=== PATIENT | female | born 1980 | race Caucasian/White ===

== ENCOUNTER 2020-08-05 19:44 | Emergency (ER) | payer OTHER, SELFPAY ==
[2020-08-05 19:50] VITALS: BP 119/59; PULSE 64; RESP 18; TEMP 37.6; O2SAT 98; BMI 30.1
[2020-08-05 20:00] VITALS: RESP 18
[2020-08-05 20:27] VITALS: BP 106/72; PULSE 70; RESP 18; TEMP 36.8; O2SAT 99
--- NOTE | 2020-08-05 21:51 | ED.SKABFB ---
HPI - Skin/Abscess/Foreign Bdy General Chief complaint: Skin/Abscess/Foreign Body Stated complaint: Abscess Time Seen by Provider: 08/05/20 21:51 Source: patient and 911 telecommunicator Mode of arrival: ambulatory History of Present Illness HPI narrative: 39-year-old female with history of fibromyalgia, arthritis who recently had a tattoo placed and now presents with formation of a ?pimple? at this superior aspect of the tattoo approximately 4 days ago. Her boyfriend attempted to pop the pimple with limited expression of pus. Patient reports subjective fevers but denies chills. Patient denies ever use of IVDA. Related Data Previous Rx's Medication Instructions Recorded sulfamethoxazole-trimethoprim 1 tab PO Q12H 5 Days #10 tab 08/05/20 [Bactrim DS] Allergies Allergy/AdvReac Type Severity Reaction Status Date / Time levofloxacin [From Levaquin] Allergy Rash Verified 08/05/20 19:50 Penicillins Allergy Rash Verified 08/05/20 19:50 adhesive tape AdvReac Rash Verified 08/05/20 19:50 Review of Systems Review of Systems: Pertinent positives and negatives as stated in HPI 10 point review of systems is otherwise negative. PMFSH Past Medical History Source: nursing notes reviewed Medical History Arthritis Asthma Fibromyalgia Hypotension Interstitial cystitis Sleep apnea Social History Social History Smoking Status: Unknown if ever smoked Use of substances other than those prescribed or required for medical reasons: No Advance Directives: No Advance Directives Information Provided: Yes Physical Exam Vital Signs: Vital Signs: Last Vital Signs Temp 98.2 F 08/05/20 20:27 Pulse 70 08/05/20 20:27 Resp 18 08/05/20 20:27 BP 106/72 08/05/20 20:27 Pulse Ox 99 08/05/20 20:27 Body Mass Index 30.1 VITAL SIGNS: Reviewed. GENERAL: Well developed, well nourished, in no acute distress. HEAD: Normocephalic/atraumatic, EYES: PERRLA, EOMI NOSE: Nares patent bilateral OROPHARYNX: no oral lesions noted, posterior pharynx clear NECK: Supple, no adenopathy LUNGS: Normal breath sounds. SpO2<99> CARDIOVASCULAR: Regular rate and rhythm without noted murmurs ABDOMEN: Soft, non-tender, non-distended with bowel sounds. BACK: There is a noted small pustule at the superior aspect of lower back tattoo but primarily induration approximately 4 cm in diameter without fluctuance. NEUROLOGIC: Alert and oriented x 4. Course Course Course Narrative: 39-year-old female with history and clinical presentation consistent with post tattoo infection although the initial site does not appear to be associated with any of the tattoo lines. Low suspicion for spinal involvement as patient has no prior history of IVDA. She will receive initial antibiotics here in the emergency department and be discharged with a script as well as instructions to use warm moist compresses and [id number] analgesics for pain control. She was also instructed to follow up with the primary care provider. Discharge Plan Discharge Clinical Impression: Induration of skin Patient Disposition: Home, Self-Care Instructions: Abscess (ED) Additional Instructions: 1. Tylenol 1000 mg, por v?a oral, cada 6 horas seg?n sea necesario para controlar el dolor. No exceda los 4000 mg en 24 horas. 2. Ibuprofeno 400 mg, por v?a oral con leche o alimentos, cada 6 horas seg?n sea necesario para controlar el dolor. 3. Aplique compresas h?medas tibias en el sitio de 3 a 4 veces al d?a brandi 5 a 10 minutos. 4. Nicole un seguimiento con peters proveedor de atenci?n primaria en los pr?ximos 2-3 d?as para shira reevaluaci?n. No dude en volver al servicio de urgencias si experimenta un empeoramiento nick de boaz s?ntomas. Prescriptions: New sulfamethoxazole-trimethoprim [Bactrim DS] 800-160 mg tablet 1 tab PO Q12H 5 Days Qty: 10 RF: 0 Referrals: Physician,Unknown [Primary Care Provider] - 2 days Print Language: Upper Sorbian
== END 2020-08-05 22:10 | disposition home or self-care (01) ==
PROVIDERS: Emergency Provider Student in an Organized Health Care Education/Training Program
DX: R23.4 Changes in skin texture (principal)
CPT/HCPCS: 99283; 99284

== ENCOUNTER 2020-08-14 06:53 | Emergency (ER) | payer OTHER, SELFPAY ==
--- NOTE | ~2020-08-14 | XR_ITS ---
EXAMINATION: XR LUMBOSACRAL SPINE CLINICAL INFORMATION: Rule out bone infection. COMPARISON: None TECHNIQUE: Three views of the lumbosacral spine. FINDINGS: The vertebral bodies and posterior elements are normal. The disc spaces are preserved and the vertebral alignment is normal. The paraspinal soft tissues are normal. Surgical clips overlie the epigastric region. XR/XR lumbar spine 2-3V IMPRESSION: Unremarkable lumbar spine.
[2020-08-14 07:05] VITALS: BP 109/56; PULSE 69; RESP 18; TEMP 36.6; O2SAT 99; BMI 31.6
[2020-08-14 07:57] VITALS: BP 95/54; PULSE 64; RESP 18; TEMP 37.1; O2SAT 96
--- NOTE | 2020-08-14 07:57 | ED.GENADULT ---
HPI - General Adult General Chief complaint: Wound/Laceration Stated complaint: WOUND CHECK Time Seen by Provider: 08/14/20 07:54 Source: patient and home support worker Mode of arrival: ambulatory Limitations: no limitations History of Present Illness HPI narrative: 39-year-old female presented for 2nd visit to the emergency department for same complaint of cyst on the lower back. This is a 39-year-old female who recently had had to placed on the lower lumbar area in the midline, patient started with a pimple that was attempted to be popped by her boyfriend with limited expression of pus, patient was seen in the emergency department 9 days ago there was no discrete abscesses then patient was sent home on Bactrim and patient finished a course of Bactrim 4 days ago, patient was complaining of drainage from the area that stopped now, patient declined any fever, but reported chills sometimes. Patient at low risk for deep infection, no history of IV drug abuse. Patient declined any urinary symptoms including urinary incontinence, no motor deficit. Related Data Previous Rx's Medication Instructions Recorded sulfamethoxazole-trimethoprim 1 tab PO Q12H 5 Days #10 tab 08/05/20 [Bactrim DS] doxycycline hyclate 100 mg PO BID #14 cap 08/14/20 Allergies Allergy/AdvReac Type Severity Reaction Status Date / Time levofloxacin [From Levaquin] Allergy Rash Verified 08/05/20 19:50 Penicillins Allergy Rash Verified 08/05/20 19:50 adhesive tape AdvReac Rash Verified 08/05/20 19:50 Review of Systems Review of Systems: All other systems are reviewed and are negative Constitutional: Reports as per HPI and Reports no additional constitutional complaints Eyes: Reports as per HPI and Reports no additional eye complaints Reports system reviewed and no additional complaints, except as documented Cardiovascular: Reports as per HPI and Reports no additional cardiovascular complaints Respiratory: Reports as per HPI and Reports no additional respiratory complaints Gastrointestinal: Reports as per HPI and Reports no additional gastrointestinal complaints Genitourinary: Reports no additional female genitourinary complaints Musculoskeletal: Reports no additional musculoskeletal complaints Skin/Breast: Reports system reviewed and no additional complaints, except as docu Psychiatric: Reports no additional psychiatric complaints Endocrine: Reports no additional endocrine complaints Hematologic/Lymphatic: Reports no additional hematologic/lymphatic complaints Allergic/Immunologic: Reports no additional allergic/immunologic complaints Reports system reviewed and no additional complaints, except as documented and Reports Abnormal speech present PMFSH Past Medical History Medical History Arthritis Asthma Fibromyalgia Hypotension Interstitial cystitis Sleep apnea Social History Social History Alcohol intake: current Alcohol intake frequency: holidays/special occasions only Smoking Status: Current every day smoker Use of substances other than those prescribed or required for medical reasons: No Advance Directives: No Advance Directives Information Provided: No Physical Exam Vital Signs: Vital Signs: Last Vital Signs Temp 98.8 F 08/14/20 07:57 Pulse 64 08/14/20 07:57 Resp 18 08/14/20 07:57 BP 95/54 L 08/14/20 07:57 Pulse Ox 96 08/14/20 07:57 Body Mass Index 31.6 Vital signs have been reviewed as appeared to be correct. Blood pressure normal. Heart rate normal. Respiration rate normal. Temperature normal. Oxygen saturation normal. Appearance: Alert. Oriented X3. No acute distress. Head: Normal external exam. Normocephalic. Atraumatic. No [place]ada signs noted. No raccoon eyes noted Eyes: PERRLA. EOMI. Conjunctiva and sclera normal. Eyelids normal. ENT: TM's Normal. Pharynx normal. Uvula midline. Moist mucous membranes. No trismus noted. No drooling noted. No muffled voice noted. Neck: Normal inspection. Neck supple. FROM. No adenopathy. Thyroid Normal. No meningeal signs. No neck mass noted. CVS: Normal heart rate and rhythm. Heart sound normal. No murmurs noted. Pulses normal throughout. Respiratory: No respiratory distress. Painless inspiration. Breath sounds normal. No wheezes/rales/rhonchi noted. Chest nontender. No accessory muscle usage noted or decreased air movement noted. Abdomen: Soft and nontender. Bowel sounds normal in all 4 quadrants. No distention noted. No organomegaly noted. No visible injury noted. Back: No CVA tenderness. Butter fly tattoo at lumbar region, area of redness, tenderness, but no fluctuation or pus drainage, 2 x 2 cm area of granulation tissue at the center surrounded by erythematous skin. Skin: Skin warm and dry. Normal skin color. Normal skin turgor. No rashes/lesions/lacerations noted. Extremities: No lower extremity edema. Extremities exhibit normal range of motion. Extremities nontender. Neuro: Oriented X 3. No motor deficit. No sensory deficit. Reflexes normal. Course Course Course Narrative: Assessment and plan. 39-year-old female history of recent tattoo placement to the lumbar region, presented 10 days ago with infection to the region with no discrete abscess, patient finished a week course of Bactrim, with partial improvement, there is no drainage or fluid collection at this point. Will start the patient on doxycycline, and will send the patient for outpatient surgery follow-up. Medical Decision Making Imaging Data Lumbar spine x-ray: Radiologist's impression: No evidence of lumbar spine osteomyelitis. Discharge Plan Discharge Clinical Impression: Cellulitis Qualifiers: Site of cellulitis of trunk: back Patient Disposition: Home, Self-Care Instructions: Cellulitis (ED) Prescriptions: New doxycycline hyclate 100 mg capsule 100 mg PO BID Qty: 14 RF: 0 No Action sulfamethoxazole-trimethoprim [Bactrim DS] 800-160 mg tablet 1 tab PO Q12H 5 Days Qty: 10 RF: 0 Referrals: Charles Gaston MD [Physician] - 2 days
--- NOTE | 2020-08-14 08:24 | PC.NURSE ---
Pt alert and oriented, skin warm and dry. Reports lump to lower mid back x10 days. No drainage noted on exam. Pt waiting on X-RAY.
--- NOTE | 2020-08-14 08:42 | PC.NURSE ---
rtn to room from xray
== END 2020-08-14 09:34 | disposition home or self-care (01) ==
PROVIDERS: Emergency Provider Emergency Medicine; PCP Internal Medicine
DX: L03.312 Cellulitis of back [any part except buttock and flank] (principal); F11.10 Opioid abuse, uncomplicated
CPT/HCPCS: 72100; 99283; 99284

== ENCOUNTER → 2020-08-28 15:39 | Outpatient (BNVA) | payer OTHER, SELFPAY | PROVIDERS: PCP Internal Medicine; Visit Provider Surgery | DX: Z87.2 Personal history of diseases of the skin and subcutaneous tissue (principal) | CPT/HCPCS: 99202 ==

== ENCOUNTER 2023-04-27 15:22 | Emergency (ER) | payer OTHER, SELFPAY ==
--- NOTE | ~2023-04-27 | XR_ITS ---
EXAMINATION: XR CHEST CLINICAL INFORMATION: Cough. COMPARISON: None available. TECHNIQUE: Frontal view of the chest was obtained. FINDINGS: No significant abnormality is noted involving the heart, lungs, mediastinum, bony thorax or soft tissues. XR/XR chest 1V IMPRESSION: Unremarkable examination.
[2023-04-27 19:06] VITALS: BP 130/65; PULSE 61; RESP 20; TEMP 36.6; O2SAT 100; BMI 20.1
[2023-04-27 19:13] LABS: MANUAL DIFF FLAG NO
[2023-04-27 19:15] LABS: Basophils Absolute Auto 0.1 X10*3/uL (0.0-0.2); Basophils Percent Auto 0.4 % (0-2); Eosinophils Percent Auto 0.2 % (0-4); Hematocrit 40.4 % (37.0-47.0); Hemoglobin 13.8 g/dl (12.0-16.0); Imm Gran Abs Auto 0.06 X10*3/uL (0.00-0.03); Imm Gran Pct Auto 0.5 % (0.0-0.4); Lymphocytes Absolute Auto 0.9 X10*3/uL (1.2-4.9); Lymphocytes Percent Auto 7.3 % (20-40); Mean Corpuscular HGB Conc 34.2 g/dl (31.0-35.0); Mean Corpuscular Hemoglobin 30.1 pg (27.0-33.0); Mean Corpuscular Volume 88.2 fL (80.0-98.0); Mean Platelet Volume 11.3 fL (9.4-12.3); Monocytes Absolute Auto 0.5 X10*3/uL (0.1-1.2); Monocytes Percent Auto 3.9 % (2-11); Neutrophils Absolute Auto 11.1 x10*3/uL (2.0-8.3); Neutrophils Percent Auto 87.7 % (45-73); Platelet Count 313 X10*3/uL (160-400); Red Blood Count 4.58 X10*6/uL (4.20-5.50); Red Cell Distribution Width 13.3 % (11.0-16.0); White Blood Count 12.7 X10*3/uL (4.8-10.8)
--- NOTE | 2023-04-27 19:17 | ED_ITS ---
HPI - General Adult General Chief complaint: Upper Respiratory Symptoms Stated complaint: vomiting,fever Time Seen by Provider: 04/27/23 20:56 Source: patient and digital print operator Mode of arrival: ambulatory Limitations: language barrier History of Present Illness HPI narrative: Patient is a 42 year old assigned female at with a history of fibromyalgia presenting to the emergency department today with nausea, vomiting, cough, congestion, fever, and chills. Patient states that over the last day she has had cough, congestion, nausea, vomiting, fever, and chills. Patient denies any dizziness, lightheadedness, abdominal pain, blurry vision, double vision, loss of vision, chest pain, difficulty breathing, shortness of breath, back pain, night sweats, pain with urination, increased urinary frequency, increased urinary urgency, blood in her urine or stool, syncope or a near syncopal episode, recent trauma or falls, bowel incontinence, bladder incontinence, bowel retention, bladder retention, or any other complaints at this time. Onset (ago): day(s) Severity: mild Severity scale (1-10): 3 Relieving factors: none Exacerbating factors: none Associated symptoms: cough, fever/chills and nausea/vomiting Treatments prior to arrival: none Related Data Previous Rx's Medication Instructions Recorded sulfamethoxazole 800 1 tab PO Q12H 5 days #10 tabs 08/05/20 mg-trimethoprim 160 mg tablet (Bactrim DS) doxycycline hyclate 100 mg capsule 100 mg PO BID #14 caps 08/14/20 hydrocodone 5 mg-acetaminophen 325 1 tab PO BID PRN pain #5 tabs 04/27/23 mg tablet ondansetron 4 mg disintegrating 4 mg PO Q8H 3 days #9 tabs 04/27/23 tablet Allergies Allergy/AdvReac Type Severity Reaction Status Date / Time levofloxacin [From Levaquin] Allergy Rash Verified 04/27/23 19:11 Penicillins Allergy Rash Verified 04/27/23 19:11 adhesive tape AdvReac Rash Verified 04/27/23 19:11 [facility] Past Medical History Attestation statement: The following information was validated with the patient. Source: old records reviewed and nursing notes reviewed Medical History Infected cyst of skin Arthritis Asthma Sleep apnea Interstitial cystitis Hypotension Fibromyalgia Social History Social History Alcohol intake: current Alcohol intake frequency: holidays/special occasions only Advance Directives: No Advance Directives Information Provided: No Physical Exam ED Vital Signs: Vital Signs - 24 hr 04/27/23 19:06 04/27/23 20:24 04/27/23 21:24 Temperature 98 F 97.6 F Pulse Rate 61 65 Respiratory Rate 20 20 Blood Pressure 130/65 112/69 Pulse Oximetry 100 98 Oxygen Delivery Method Room Air Room Air Room Air BMI result Body Mass Index 20.1 Const General: cooperative, no acute distress, alert and awake Nutritional Appearance: well nourished Orientation/consciousness: patient oriented x3 Limitations: no limitations HENMT Head: Yes normal to inspection and Yes atraumatic Ears: hearing grossly normal bilaterally and external ears normal General nose exam: Normal external nose present, no nasal discharge noted and no epistaxis Face and sinus: Yes normal facial exam, No abrasion and No laceration Mouth: Normal oral and palatal mucosa present, no drooling and no muffled voice Eyes General: appearance normal, both eyes and all related structures Periorbital: periorbital findings normal Eyelids: Yes eyelids normal Conjunctivae: conjunctivae normal Pupils: Equal, round and reactive pupils present EOM: EOMs intact bilaterally Neck Neck: Yes normal visual inspection, Yes full ROM and Yes no lymphadenopathy Chest Chest palpation & inspection: normal inspection of the chest Resp Effort & Inspection: normal respiratory effort and able to speak in complete sentences GI Inspection: Yes normal to inspection Neuro General: patient oriented x3 and moves all extremities Cranial nerves: Yes Equal, round and reactive pupils present Cognition (Neuro): normal cognition Motor exam (neuro): 5/5 motor strength present throughout Sensory Exam: Normal double simultaneous stimulation for sensation Coordination: [id number] test normal Extrem General: Yes normal to inspection, Yes full ROM and Yes capillary refill normal Psych Appearance: grossly normal Mental Status: mental status grossly normal Affect: normal affect Attitude: cooperative Thought process: Normal thought process present Thought content: Normal thought content present Insight: Good insight present (Psych) Course Course Course Narrative: This is a rapid medical exam: Additional HPI, ROS, PE not included below will be deferred to primary provider. Patient is a 42-year-old female presenting to the emergency department with complaint of nausea and vomiting since this afternoon, also complains of epigastric abdominal pain. Significant other reports he is sick with similar symptoms. Denies fevers. Plan: Labs, viral swab, UA Medications Administered Discontinued Medications Generic Name Dose Route Start Last Admin Trade Name Richard PRN Reason Stop Dose Admin Sodium Chloride 1,000 mls @ 999 mls/hr 04/27/23 21:15 04/27/23 22:27 Ns IV 04/27/23 22:15 Infused .Q1H1M CRIS Infusion Morphine Sulfate 4 mg 04/27/23 22:18 04/27/23 22:26 Morphine Sulfate 4 Mg/Ml Cartridge IVPUSH 04/27/23 22:19 4 mg ONCE ONE Administration Protocol Naloxone HCl 8 mg 04/27/23 23:40 04/27/23 23:48 Naloxone Hcl Nasal Take Home 4 Mg [place] NOSTRILALT 04/27/23 23:41 8 mg ONCE ONE Administration Ondansetron HCl 4 mg 04/27/23 21:05 04/27/23 21:20 Ondansetron Hcl 4 Mg/2 Ml Vial IVPUSH 04/27/23 21:06 4 mg ONCE ONE Administration Medical Decision Making Medical Decision Making [facility] Narrative: Patient is a 42 year old assigned female at with a history of fibromyalgia presenting to the emergency department today with a cough, congestion, nausea, vomiting, fever, and chills. Patient's physical exam was unremarkable. Patient's blood work was unremarkable. Patient's influenza, RSV, and influenza tests negative. Patient's chest x-ray showed no acute process. I explained my physical exam findings as well as all test results to the patient. I answered all questions asked by the patient. I stressed the importance of the patient taking her medication as prescribed. I stressed the importance of the patient following up with her primary care provider. I stressed the importance of the patient returning to the emergency department immediately if her symptoms were to worsen or if she were to develop any dizziness, shortness of breath, difficulty breathing, chest pain, blurry vision, loss of vision, nausea, vomiting, abdominal pain, fever, chills, back pain, or any other complaints. Patient verbalized agreement and understanding with this treatment plan and discharge. Differential Diagnosis Differential Diagnoses: The differential diagnosis associated with the presentation includes Viral illness Gastroenteritis Enteritis Influenza COVID-19 RSV Admission/Observation Consideration of admission/observation: Escalation of care including admission/observation considered Patient would have been admitted to the hospital had her work up had any findings where hospital admission was appropriate and her clinical presentation warranted hospital admission. Lab Data [facility] Lab Attestation statement: I reviewed the patient's lab results. My interpretation of these results are in the [facility] Rationale portion of this note. 04/27/23 19:08 04/27/23 19:08 Labs: Lab Results 04/27/23 04/27/23 Range/Units 19:08 19:09 WBC 12.7 H (4.8-10.8) X10*3/uL RBC 4.58 (4.20-5.50) X10*6/uL Hgb 13.8 (12.0-16.0) g/dl Hct 40.4 (37.0-47.0) % MCV 88.2 (80.0-98.0) fL MCH 30.1 (27.0-33.0) pg MCHC 34.2 (31.0-35.0) g/dl RDW 13.3 (11.0-16.0) % Plt Count 313 (160-400) X10*3/uL MPV 11.3 (9.4-12.3) fL Immature Gran % (Auto) 0.5 H (0.0-0.4) % Neut % (Auto) 87.7 H (45-73) % Lymph % (Auto) 7.3 L (20-40) % [place] % (Auto) 3.9 (2-11) % Eos % (Auto) 0.2 (0-4) % Baso % (Auto) 0.4 (0-2) % Lymph # (Auto) 0.9 L (1.2-4.9) X10*3/uL [place] # (Auto) 0.5 (0.1-1.2) X10*3/uL Eos # (Auto) 0.0 (0.0-0.4) X10*3/uL Baso # (Auto) 0.1 (0.0-0.2) X10*3/uL Abs Immat Gran (auto) 0.06 H (0.00-0.03) X10*3/uL Absolute Neuts (auto) 11.1 H (2.0-8.3) x10*3/uL Absolute Nucleated RBC 0.000 (0.0-0.012) X10*3/uL Nucleated RBC % (auto) 0.0 (0.0-0.2) /100WBC Sodium 142 (135-145) mmol/L Potassium 3.8 (3.3-5.1) mmol/L Chloride 105 (96-108) mmol/L Carbon Dioxide 23 (22-29) mmol/L Anion Gap 18 (12-20) BUN 11 (9-16) mg/dL Creatinine 0.75 (0.5-1.4) mg/dL Estim Creat Clear Calc 75.4 Estimated GFR > 60 Random Glucose 122 H (60-115) mg/dL Calcium 10.4 H (8.4-10.2) mg/dL Total Bilirubin 0.5 (0.0-1.0) mg/dL AST 26 (5-31) U/L ALT 14 (0-31) U/L Alkaline Phosphatase 66 (39-117) U/L Total Protein 8.4 H (6.5-8.0) g/dL Albumin 4.5 (3.5-5.0) g/dL Beta HCG, Quant < 2 mIU/mL Influenza Type A (PCR) NEGATIVE (Negative) Influenza Type B (PCR) NEGATIVE (Negative) RSV RNA Qual (PCR) NEGATIVE (Negative) SARS-CoV-2 RNA (RT-PCR) NEGATIVE (Negative) S. pyogenes GrpA ROMERO Negative (Negative) Independent Interpretation I performed an independent interpretation of an: Plain X-Ray Interpretation: My interpretation is in agreement with the radiologist's impression of this imaging study. - EXAMINATION: XR CHEST CLINICAL INFORMATION: Cough. COMPARISON: None available. TECHNIQUE: Frontal view of the chest was obtained. FINDINGS: No significant abnormality is noted involving the heart, lungs, mediastinum, bony thorax or soft tissues. XR/XR chest 1V IMPRESSION: Unremarkable examination. Dictated By: Rose Brown Signed By: Electronically signed by Rose Brown 04/27/232149 Radiology Impression Discussion of test interpretation with radiology: I have reviewed the radiologist's reading. Tests considered The following testing was considered but not selected: CT of the abdomen/pelvis was considered however, the patient's clinical presentation did not warrant imaging at this time. Prescription Management I considered prescription management with: Pain Medication (patient prescribed pain medication for pain secondary to vomiting) and Other (patient prescribed anti-emetic for nausea/vomiting) Discharge Plan Discharge Clinical Impression: Viral illness, Nausea & vomiting Patient Disposition: Home, Self-Care Instructions: Acute Nausea and Vomiting (ED), Viral Syndrome (ED) Additional Instructions: Follow up with your primary care provider. Return to the emergency department immediately if your symptoms worsen or if you develop any dizziness, shortness of breath, difficulty breathing, chest pain, blurry vision, loss of vision, nausea, vomiting, abdominal pain, fever, chills, back pain, or any other complaints. Nicole un seguimiento con peters proveedor de atenci?n primaria. Regrese al departamento de emergencias inmediatamente si boaz s?ntomas empeoran o si presenta mareos, dificultad para respirar, dificultad para respirar, dolor en el pecho, visi?n borrosa, p?rdida de la visi?n, n?useas, v?mitos, dolor abdominal, fiebre, escalofr?os, dolor de espalda o cualquier otras quejas. Prescriptions: New ondansetron 4 mg tablet,disintegrating 4 mg PO Q8H 3 Days Qty: 9 0RF hydrocodone-acetaminophen 5-325 mg tablet 1 tab PO BID PRN (Reason: pain) Qty: 5 0RF Rx Instructions: Partial Fill upon patient request. No Action sulfamethoxazole-trimethoprim [Bactrim DS] 800-160 mg tablet 1 tab PO Q12H 5 Days Qty: 10 0RF doxycycline hyclate 100 mg capsule 100 mg PO BID Qty: 14 0RF Referrals: Mendez Roldan MD [Primary Care Provider] - Stand Alone Forms: Work/School Release Interventions: ED Discharge Assessment Last Done: 04/27/23 23:48 Discharge Date/Time: 04/27/23 23:50 Print Language: [place] Citizen
[2023-04-27 19:23] LABS: IDNOW Serial# 08D9AD1C; Strep A Nucleic Acid Negative (Negative)
[2023-04-27 19:37] LABS: Alanine Aminotransferase 14 U/L (0-31); Albumin Level 4.5 g/dL (3.5-5.0); Alkaline Phosphatase 66 U/L (39-117); Anion Gap 18 (12-20); Aspartate Amino Transferase 26 U/L (5-31); Bilirubin Total 0.5 mg/dL (0.0-1.0); Blood Urea Nitrogen 11 mg/dL (9-16); Calcium 10.4 mg/dL (8.4-10.2); Carbon Dioxide 23 mmol/L (22-29); Chloride 105 mmol/L (96-108); Creatinine Clr Calc Pharmacy 75.4; Estimated Glomerular Filt Rate > 60; Glucose Random 122 mg/dL (60-115); Potassium 3.8 mmol/L (3.3-5.1); Sodium 142 mmol/L (135-145); Total Protein 8.4 g/dL (6.5-8.0)
[2023-04-27 19:40] LABS: HCG Quantitative < 2 mIU/mL
[2023-04-27 19:53] LABS: Influenza A PCR NEGATIVE (Negative); Influenza B PCR NEGATIVE (Negative); Resp Syncy Virus RNA Qual PCR NEGATIVE (Negative); SARS COV2 PCR INHOUSE NEGATIVE (Negative)
[2023-04-27 20:24] VITALS: BP 112/69; PULSE 65; RESP 20; TEMP 36.4; O2SAT 98
[2023-04-27] MEDS: ondansetron HCL 4 MG/2 ML VIAL IVPUSH (21:20)
[2023-04-27] MEDS: 0.9 % Sodium Chloride 1,000 ML 999 ML IV (21:20)
[2023-04-27] MEDS: Morphine Sulfate 4 MG/ML CARTRIDGE IVPUSH (22:26)
[2023-04-27] MEDS: Naloxone HCl Nasal TAKE HOME 4 MG SPRAY 8 MG NOSTRILALT (23:48)
== END 2023-04-27 23:50 | disposition home or self-care (01) ==
PROVIDERS: Registered Nurse Emergency; Emergency Provider Emergency Medicine; PCP Internal Medicine
DX: B34.9 Viral infection, unspecified (principal); R11.2 Nausea with vomiting, unspecified; Z20.822 Contact with and (suspected) exposure to COVID-19; Z20.828 Contact with and (suspected) exposure to other viral communicable diseases
CPT/HCPCS: 0241U; 71045; 80053; 84702; 85025; 87651; 96361; 96374; 96375; 99284; J2270; J2405

== ENCOUNTER 2025-01-29 20:08 | Emergency (ER) | payer OTHER, SELFPAY ==
[2025-01-29 20:32] VITALS: BP 109/66; PULSE 64; RESP 14; TEMP 36.3; O2SAT 99; BMI 22.9
--- NOTE | 2025-01-29 20:33 | ED_ITS ---
HPI - General Adult General Chief complaint: Urogenital-Female Stated complaint: burning when urinating Time Seen by Provider: 01/29/25 22:53 Source: patient and stations superintendent (Tajik) Mode of arrival: ambulatory Limitations: language barrier (Tajik) History of Present Illness ED Provider: ANGIE JENKINS PA-C HPI narrative: 44 yo F with PMH significant for asthma and fibromyalgia presents to the ED with urinary hesitancy and dysuria x4 days. Describes this sensation as pain in my urethra . Denies hematuria, foul odor to urine, abd or flank pain, fever, chills. Admits she has not been drinking much water and may be dehydrated. Reports history of chronic cystitis, has not followed up with her urologist in approximately 2 years. Also reports chronic constipation. Her last bowel movement was yesterday and was firm. Able to pass flatus. No nausea or vomiting. Patient is sexually active. She denies any abnormal vaginal discharge, bleeding or odor. Denies concern for STDs. She is status post hysterectomy. Related Data Previous Rx's ?Medication ?Instructions ?Recorded sulfamethoxazole 800 1 tab PO Q12H 5 days #10 tab s 08/05/20 mg-trimethoprim 160 mg tablet (Bactrim DS) doxycycline hyclate 100 mg capsule 100 mg PO BID #14 c aps 08/14/20 hydrocodone 5 mg-acetaminophen 325 1 tab PO BID PRN pa in #5 tabs 04/27/23 mg tablet ondansetron 4 mg disintegrating 4 mg PO Q8H 3 days #9 tabs 04/27/23 tablet phenazopyridine 200 mg tablet 200 mg PO TID 6 doses #6 tabs 01/30/25 (Pyridium) Allergies Allergy/AdvReac Type Severity Reaction Status Date / Time levofloxacin (From Levaquin) Allergy Rash Verified 01/29/25 20:35 Penicillins Allergy Rash Verified 01/29/25 20:35 adhesive tape AdvReac Rash Verified 01/29/25 20:35 Review of Systems 2 Review of Systems: Yes all other systems are reviewed and are negative PMFSH Past Medical History Attestation statement: The following information was validated with the patient. Source: old records reviewed and nursing notes reviewed Medical History Infected cyst of skin Arthritis Asthma Sleep apnea Interstitial cystitis Hypotension Fibromyalgia Social History Social History Alcohol intake: current Alcohol intake frequency: does not drink Smoked in Last 30 Days: Yes Use of substances other than those prescribed or required for medical reasons: No Advance Directives: No Advance Directives Information Provided: Yes Do you have a plan to hurt others: No Plan Physical Exam ED Vital Signs: Vital Signs - 24 hr 01/29/25 20:32 01/30/25 00:00 01/30/25 01:15 Temperature 97.4 F 98.0 F 98.2 F Pulse Rate 64 58 58 Respiratory Rate 14 16 16 Blood Pressure 109/66 98/53 L 97/55 L Pulse Oximetry 99 99 99 Oxygen Delivery Method Room Air Room Air Room Air 01/30/25 01:33 Temperature 98.2 F Pulse Rate 58 Respiratory Rate 16 Blood Pressure 97/55 L Pulse Oximetry 99 Oxygen Delivery Method Room Air BMI result Body Mass Index 22.9 Vital signs stable General: Well appearing, in no acute distress. Skin: Warm, dry, intact. No rashes or lesions. Head: Normocephalic, atraumatic. EENT: Hearing is intact b/l. Conjunctiva clear. PERRLA. EOM intact. Moist mucous membranes.? Cardiac: Chest wall symmetric. RRR Lungs: Normal respiratory effort without accessory muscle use. CTA bilaterally Abdomen: Soft, non-tender, non-distended. No rebound tenderness or guarding. Positive BS x4. no cvat. Back: No midline spinous or paraspinal tenderness. No step off deformity. Ext: Upper and lower extremities atraumatic, without tenderness, deformity, swelling or erythema Neuro: AOx3. Normal speech. Ambulating with steady gait Course Course Course Narrative: Medical screening exam performed. Please refer to detailed history, exam, evaluation, and management by primary provider. Dysuria and frequency, history of cystitis in the past. Reevaluation(s) Reevaluation #1: CBC without leukocytosis or left shift. Normocytic anemia, H&H above transfusion threshold. Chemistry without acute electrolyte abnormality requiring intervention. No GIOVANNI. Urine is negative for infection. No blood. > patient receiving IV fluids. Advised to increase oral hydration. Will prescribe Pyridium for bladder spasms. Advised to follow up with her urologist. No antibiotics indicated at this time. Exam benign. I do not feel as though advanced imaging is warranted. Patient has remained stable throughout ED visit today. Discussed worrisome signs and symptoms and when to return to the ED. All questions answered at this time. Patient is agreeable with disposition and stable for discharge. Medications Administered Discontinued Medications Generic Name Dose Route Start Last Admin Trade Name Richard PRN Reason Stop Dose Admin Sodium Chloride 1,000 mls @ 999 mls/hr 01/30/25 00:30 01/30/25 01:33 Ns IV 01/30/25 01:30 Infused .Q1H1M CRIS Infusion Phenazopyridine HCl 200 mg 01/30/25 01:01 01/30/25 01:16 Phenazopyridine Hcl 200 Mg Tablet PO 01/30/25 01:02 200 mg ONCE ONE Administration Medical Decision Making Medical Decision Making [facility] Narrative: 44 yo F with PMH significant for asthma and fibromyalgia presents to the ED with urinary hesitancy and dysuria x4 days. Vital signs stable. Afebrile. Her exam is quite benign. Abdomen is soft, nondistended, nontender to palpation. There is no rebound or guarding. No CVAT bilaterally. Active bowel sounds throughout. Differential diagnosis includes bladder spasms, dysuria, cystitis, UTI, constipation, dehydration, GIOVANNI. Lower suspicion for STDs, pyelonephritis. Plan for labs, UA, IVF, re-eval. Differential Diagnosis Differential Diagnoses: The differential diagnosis associated with the presentation includes as above. Admission/Observation not indicated. Lab Data [facility] Lab Attestation statement: I reviewed the patient's lab results. as above. 01/29/25 20:54 01/29/25 20:54 Labs: Lab Results 01/29/25 01/30/25 Range/Units 20:54 00:16 WBC 9.4 (4.8-10.8) X10*3/uL RBC 3.79 L (4.20-5.50) X10*6/uL Hgb 11.3 L (12.0-16.0) g/dl Hct 34.3 L (37.0-47.0) % MCV 90.5 (80.0-98.0) fL MCH 29.8 (27.0-33.0) pg MCHC 32.9 (31.0-35.0) g/dl RDW 14.3 (11.0-16.0) % Plt Count 234 D (160-400) X10*3/uL MPV 11.2 (9.4-12.3) fL Immature Gran % (Auto) 0.3 (0.0-0.4) % Neut % (Auto) 60.2 (45-73) % Lymph % (Auto) 23.4 (20-40) % [place] % (Auto) 8.7 (2-11) % Eos % (Auto) 6.8 H (0-4) % Baso % (Auto) 0.6 (0-2) % Lymph # (Auto) 2.2 (1.2-4.9) X10*3/uL [place] # (Auto) 0.8 (0.1-1.2) X10*3/uL Eos # (Auto) 0.6 H (0.0-0.4) X10*3/uL Baso # (Auto) 0.1 (0.0-0.2) X10*3/uL Abs Immat Gran (auto) 0.03 (0.00-0.03) X10*3/uL Absolute Neuts (auto) 5.6 (2.0-8.3) x10*3/uL Absolute Nucleated RBC 0.000 (0.0-0.012) X10*3/uL Nucleated RBC % (auto) 0.0 (0.0-0.2) /100WBC Sodium 141 (135-145) mmol/L Potassium 3.7 (3.3-5.1) mmol/L Chloride 104 (96-108) mmol/L Carbon Dioxide 30 H (22-29) mmol/L Anion Gap 11 L (12-20) BUN 9 (9-16) mg/dL Creatinine 0.67 (0.5-1.4) mg/dL Estim Creat Clear Calc 83.0 Estimated GFR > 60 Random Glucose 74 (60-115) mg/dL Calcium 9.1 D (8.4-10.2) mg/dL Urine Color Yellow Urine Appearance Clear Urine pH 5.5 (5.0-9.0) Ur Specific [place] 1.020 (1.005-1.025) Urine Protein 30 (1+) H (Neg-Trace) mg/dL Urine Glucose (UA) Negative (Negative) mg/dL Urine Ketones Trace (Negative) mg/dL Urine Blood Negative (Negative) Urine Nitrite Negative (Negative) Ur Leukocyte Esterase Negative (Negative) Urine RBC 0-2 (0-2) /HPF Urine WBC 0-5 (0-5) /HPF Ur Squamous Epith Cells 3-5 (0-2) /HPF Urine Bacteria None Seen (None Seen) Hyaline Casts 0-2 (0-2) /LPF Independent Historian Clinical information obtained from an independent historian. History obtained from or confirmed by: Spouse External Record Review External record reviewed: Inpatient record Prescription Management I considered prescription management with: Pain Medication (Pyridium) Chronic Conditions Patient?s care impacted by: Other (cystitis) Social Determinants Patient?s care significantly limited by Social Determinants of Health including: Other Social Determinant of Health Critical Care Time Critical Care Time Critical Care Time: No Discharge Plan Discharge Clinical Impression: Bladder spasm Patient Disposition: Home, Self-Care Additional Instructions: Your blood work is reassuring. Your urine does not demonstrate infection. Pyridium is an analgesic that can relieve the pain, burning, and discomfort caused by irritation of the urinary tract. It is not an antibiotic. This has been sent to your pharmacy. Take this as needed for discomfort. Pyridium can cause your urine to turn a reddish orange color.? Follow up with your primary care provider as needed. If you develop a fever or new/ worsening symptoms call 911 or come back to the ER for further evaluation. Prescriptions: New phenazopyridine [Pyridium] 200 mg tablet 200 mg PO TID Qty: 6 0RF No Action sulfamethoxazole-trimethoprim [Bactrim DS] 800-160 mg tablet 1 tab PO Q12H 5 Days Qty: 10 0RF doxycycline hyclate 100 mg capsule 100 mg PO BID Qty: 14 0RF ondansetron 4 mg tablet,disintegrating 4 mg PO Q8H 3 Days Qty: 9 0RF hydrocodone-acetaminophen 5-325 mg tablet 1 tab PO BID PRN (Reason: pain) Qty: 5 0RF Rx Instructions: Partial Fill upon patient request. Referrals: Mendez Roldan MD [Primary Care Provider, Internal Medicine] Interventions: ED Discharge Assessment Last Done: 01/30/25 01:33 Discharge Date/Time: 01/30/25 01:34 Print Language: Tajik
[2025-01-29 21:02] LABS: MANUAL DIFF FLAG NO
[2025-01-29 21:04] LABS: Hematocrit 34.3 % (37.0-47.0); Hemoglobin 11.3 g/dl (12.0-16.0); Imm Gran Abs Auto 0.03 X10*3/uL (0.00-0.03); Imm Gran Pct Auto 0.3 % (0.0-0.4); Lymphocytes Absolute Auto 2.2 X10*3/uL (1.2-4.9); Mean Corpuscular HGB Conc 32.9 g/dl (31.0-35.0); Mean Corpuscular Hemoglobin 29.8 pg (27.0-33.0); Mean Corpuscular Volume 90.5 fL (80.0-98.0); NRBC Abs Auto 0.000 X10*3/uL (0.0-0.012); NRBC Pct Auto 0.0 /100WBC (0.0-0.2); Platelet Count 234 X10*3/uL (160-400); Red Blood Count 3.79 X10*6/uL (4.20-5.50); White Blood Count 9.4 X10*3/uL (4.8-10.8)
[2025-01-29 21:15] LABS: Anion Gap 11 (12-20); Blood Urea Nitrogen 9 mg/dL (9-16); Calcium 9.1 mg/dL (8.4-10.2); Carbon Dioxide 30 mmol/L (22-29); Chloride 104 mmol/L (96-108); Creatinine Clr Calc Pharmacy 83.0; Estimated Glomerular Filt Rate > 60; Potassium 3.7 mmol/L (3.3-5.1); Sodium 141 mmol/L (135-145)
[2025-01-30] VITALS: BP 98/53; PULSE 58; RESP 16; TEMP 36.7; O2SAT 99
--- NOTE | 2025-01-30 00:17 | PC.NURSE ---
Notified provider of low bp.
[2025-01-30 00:28] LABS: Appearance Urine Clear; Glucose Urine UA Negative (Negative); PH 5.5 (5.0-9.0); Specific Gravity - Urine 1.020 (1.005-1.025); UMIC TRIGGER UA YES
--- NOTE | 2025-01-30 00:31 | PC.NURSE ---
Iv start in right ac, medicated per mar.
[2025-01-30 01:15] VITALS: BP 97/55; PULSE 58; RESP 16; TEMP 36.8; O2SAT 99
--- NOTE | 2025-01-30 01:20 | PC.NURSE ---
medicated per mar.
--- NOTE | 2025-01-30 01:21 | PC.NURSE ---
Reviewed discharge instructions with pt. pt verbalized understanding, no sign of distress, medicated upon discharge, pt had a steady gait.
[2025-01-30 01:33] VITALS: BP 97/55; PULSE 58; RESP 16; TEMP 36.8; O2SAT 99
== END 2025-01-30 01:34 | disposition home or self-care (01) ==
PROVIDERS: Physician Assistant; Emergency Provider Emergency Medicine; PCP Internal Medicine
DX: N32.89 Other specified disorders of bladder (principal); Z87.448 Personal history of other diseases of urinary system; Z79.899 Other long term (current) drug therapy
CPT/HCPCS: 36415; 80048; 81001; 85025; 96360; 99284; 99285

== ENCOUNTER 2025-01-31 23:30 | Emergency (ER) | payer OTHER, SELFPAY ==
[2025-01-31 23:35] VITALS: BP 107/58; PULSE 84; RESP 18; TEMP 36.3; O2SAT 99; BMI 20.3
--- OUTSIDE RECORDS SUMMARY | 2025-02-01 01:40 | XMS_ITS | Encounter Summary ---
Author Organization [facility] Address [address] [place] [address] Care Team Providers Care Associate Of Science In Nursing Name Role Phone Mendez Roldan MD Primary Care Provider [phone] Encounter Details Date Type Department Care Team Description 12/31/2016 Box Toe Stitcher Report Medical Records [address] [place] [address] Zackery Garza MD Social History Tobacco Use Types Packs/Day Years Used Date Smoking Tobacco: Never Smokeless Tobacco: Never Alcohol Use Standard Drinks/Week Comments No 0 (1 standard drink = 0.6 oz pur e alcohol) Sex Assigned at Date Recorded Not on file Job Start Date Occupation Industry Not on file Not on file Not on file documented as of this encounter Plan of Treatment Not on file documented as of this encounter Visit Diagnoses Not on filedocumented in this encounter Care Teams Associate Of Science In Nursing Relationship Specialty Start Date End Date Mendez Roldan MD [address] [place] [id number] PCP - General Internal Medicine 05/08/15 documented as of this encounter
--- OUTSIDE RECORDS SUMMARY | 2025-02-01 01:40 | XMS_ITS | Encounter Summary ---
Author Organization [facility] Address [address] [place] [address] Care Team Providers Care Warehouse Packer Name Role Phone Mendez Roldan MD Primary Care Provider [phone] Encounter Details Date Type Department Care Team Description 08/28/2020 Wire Annealer Report Medical Records [address] [place] [address] Nicho Chapa MD Social History Tobacco Use Types Packs/Day Years Used Date Smoking Tobacco: Every Day Cigarettes 0.5 Last attempted to quit: 11/28/2010 Smokeless Tobacco: Never Alcohol Use Standard Drinks/Week Comments No 0 (1 standard drink = 0.6 oz pur e alcohol) quit in 2010 Sex Assigned at Date Recorded Not on file Job Start Date Occupation Industry Not on file Not on file Not on file documented as of this encounter Plan of Treatment Not on file documented as of this encounter Visit Diagnoses Not on filedocumented in this encounter Care Teams Warehouse Packer Relationship Specialty Start Date End Date Mendez Roldan MD [address] [place] [address] PCP - General Internal Medicine 05/08/15 documented as of this encounter
--- OUTSIDE RECORDS SUMMARY | 2025-02-01 01:40 | XMS_ITS | Encounter Summary ---
Author Organization [facility] Address [address] [place] [address] Care Team Providers Care Fur Cutting Machine Operator Name Role Phone Mendez Roldan MD Primary Care Provider [phone] Reason for Visit * Reason Comments E-prescribe Rx Request Encounter Details Date Type Department Care Team Description 01/23/2016 Refill Rheumatology - [address] [address] Robert Smith MD E-prescribe Rx Request Social History Tobacco Use Types Packs/Day Years Used Date Smoking Tobacco: Never Smokeless Tobacco: Never Alcohol Use Standard Drinks/Week Comments No 0 (1 standard drink = 0.6 oz pur e alcohol) Sex Assigned at Date Recorded Not on file Job Start Date Occupation Industry Not on file Not on file Not on file documented as of this encounter Miscellaneous Notes * Telephone Encounter - Georgina Madrid L.P.N. - 01/23/2016 9:18 AM EDT Faxed to pharmacy * Telephone Encounter - Bibi Jesu - 01/23/2016 7:36 AM EDT Patient would like script to be: E-PRESCRIBED/FAXED TO PHARMACY WHEN WAS THE PATIENT'S LAST APPOINTMENT IN ADULT MEDICINE? WHEN WAS THE LAST TIME THE PATIENT SAW THEIR PCP? Does patient have an upcoming appointment? (THE MEDICATION REQUESTED IS ON THE MED LIST ABOVE) All of the medications requested were on the CURRENT MEDS list Did you check the Pharmacy information above?: YES Patient wants: 30 -day supply Is this a mail order prescription request ? NO Patients current insurance carrier is: Payor: MEDICARE-[employer] / Plan: MEDICARE-[employer] / Product Type: MEDICARE [id number] documented in this encounter Plan of Treatment Not on file documented as of this encounter Visit Diagnoses Diagnosis Fibromyalgia- Primary Mylagia and myositis, unspecified documented in this encounter Care Teams Fur Cutting Machine Operator Relationship Specialty Start Date End Date Mendez Roldan MD [address] [place] [id number] PCP - General Internal Medicine 05/08/15 documented as of this encounter
--- OUTSIDE RECORDS SUMMARY | 2025-02-01 01:40 | XMS_ITS | Encounter Summary ---
Author Organization [facility] Address [address] [place] [address] Care Team Providers Care Drum Plater Name Role Phone Mendez Roldan MD Primary Care Provider [phone] Reason for Visit * Reason Comments E-prescribe Rx Request Encounter Details Date Type Department Care Team Description 12/16/2023 Refill Adult Medicine [address] [address] Mendez Roldan MD [address] [place] [address] E-prescribe Rx Request Social History Tobacco Use [...] encounter Miscellaneous Notes * Telephone Encounter - Mita Vick M.A - 12/17/2023 8:49 AM EDT Last office visit 08/22/23 * Telephone Encounter - Liberty Abraham - 12/17/2023 8:38 AM EDT Patient would like script to be: E-PRESCRIBED/FAXED TO PHARMACY WHEN WAS THE PATIENT'S LAST APPOINTMENT IN ADULT MEDICINE? 08-22-23 WHEN WAS THE LAST TIME THE PATIENT SAW THEIR PCP? Same as above Does patient have an upcoming appointment? no (THE MEDICATION REQUESTED IS ON THE MED LIST ABOVE) All of the medications requested were on the CURRENT MEDS list Did you check the Pharmacy information above?: YES Patient wants: 90 -day supply Is this a mail order prescription request ? NO If the refill is from a FAXED refill request what is the RX # listed on the fax? N/A Patients current insurance carrier is: Payor: [employer] MCR / Plan: [facility] / Product Type: HMO [id number] documented in this encounter Plan of Treatment Not on file documented as of this encounter Visit Diagnoses Not on filedocumented in this encounter Care Teams Drum Plater Relationship Specialty Start Date End Date Mendez Roldan MD [address] [place] [address] PCP - General Internal Medicine 05/08/15 documented as of this encounter
--- OUTSIDE RECORDS SUMMARY | 2025-02-01 01:40 | XMS_ITS | Encounter Summary ---
Author Organization [facility] Address [address] [place] [address] Care Team Providers Care Pneumatic Jacketer Name Role Phone Mendez Roldan MD Primary Care Provider [phone] Reason for Visit * Reason Onset Date Comments refill request 12/18/2023 Encounter Details Date Type Department Care Team Description 12/18/2023 Refill Gastroenterology - [address] [place] [phone] Jay Philip PA-C refill request Social History Tobacco Use Types Packs/Day Years [...] encounter Miscellaneous Notes * Telephone Encounter - Jay Philip PA-C - 12/22/2023 6:24 PM EDT It appears that patient has had Amitiza which she was taking twice a day and then she also had Linzess at 1 point but Trulance taking 9 mg a day is not the standard dose and am not sure if she had been prescribed this years ago when I worked at other facilities * Telephone Encounter - Reyna Pelaez - 12/18/2023 12:56 PM EDT This is not in patient's chart or prescribed by Jay Philip. Please advise, thank you. * Telephone Encounter - Staci Peraza - 12/18/2023 11:16 AM EDT Received fax from [email or web address] requesting trulance 3mg take 3 tablets by mouth everyday Arie 07/31/2023 No upcoming documented in this encounter Plan of Treatment Not on file documented as of this encounter Visit Diagnoses Not on filedocumented in this encounter Care Teams Pneumatic Jacketer Relationship Specialty Start Date End Date Mendez Roldan MD [address] [place] [address] PCP - General Internal Medicine 05/08/15 documented as of this encounter
--- OUTSIDE RECORDS SUMMARY | 2025-02-01 01:40 | XMS_ITS | Encounter Summary ---
Author Organization [facility] Address [address] [place] [address] Care Team Providers Care Freight Claim Investigator Name Role Phone Mendez Roldan MD Primary Care Provider [phone] Encounter Details Date Type Department Care Team Description 11/10/2017 Transfer Records Medical Records [address] [place] [address] Social History Tobacco Use Types Packs/Day Years [...] on filedocumented in this encounter Care Teams Freight Claim Investigator Relationship Specialty Start Date End Date Mendez Roldan MD [address] [place] [address] PCP - General Internal Medicine 05/08/15 documented as of this encounter
--- OUTSIDE RECORDS SUMMARY | 2025-02-01 01:40 | XMS_ITS | Encounter Summary ---
Author Organization [facility] Address [address] [place] [address] Care Team Providers Care Trekking Guide Name Role Phone Mendez Roldan MD Primary Care Provider [phone] Reason for Visit * Reason Onset Date Comments Faxed Refill 08/09/2019 Encounter Details Date Type Department Care Team Description 08/09/2019 Refill Gastroenterology - [address] [place] [phone] Cisco Dodge PA-C Faxed Refill Social History Tobacco Use Types Packs/Day Years Used Date Smoking Tobacco: Former Cigarettes 0.5 Q uit: 11/28/2010 Smokeless Tobacco: Never Alcohol Use Standard Drinks/Week Comments No 0 (1 standard drink = 0.6 oz pur e alcohol) quit in 2010 Sex Assigned at Date Recorded Not on file Job Start Date Occupation Industry Not on file Not on file Not on file documented as of this encounter Miscellaneous Notes * Telephone Encounter - Marietta Silverman M.A. - 08/09/2019 3:30 PM EDT Last office visit 07/05/2019 Upcoming office visit 09/09/2019 omeprazole (PRILOSEC) 40 MG capsule Patient wants: 30 - day supply * Telephone Encounter - Avani Gordon - 08/09/2019 3:20 PM EDT Patient would like script to be: E-PRESCRIBED/FAXED TO PHARMACY WHEN WAS THE PATIENT'S LAST APPOINTMENT WITH THE PRESCRIBING PROVIDER? 07/05/19 Does patient have an upcoming appointment? Yes 09/09/19 (THE MEDICATION REQUESTED IS ON THE MED LIST ABOVE) All of the medications requested were on the CURRENT MEDS list omeprazole (PRILOSEC) 40 MG capsule Did you check the Pharmacy information above?: YES Patient wants: 30 -day supply Is this a mail order prescription request ? NO Patients current insurance carrier is: Payor: [facility] MCR / Plan: [facility] / Product Type: HMO [id number] documented in this encounter Plan of Treatment Not on file documented as of this encounter Visit Diagnoses Not on filedocumented in this encounter Care Teams Trekking Guide Relationship Specialty Start Date End Date Mendez Roldan MD [address] [place] [address] PCP - General Internal Medicine 05/08/15 documented as of this encounter
--- OUTSIDE RECORDS SUMMARY | 2025-02-01 01:40 | XMS_ITS | Encounter Summary ---
Author Organization [facility] Address [address] [place] [address] Care Team Providers Care Application Chemist Name Role Phone Mendez Roldan MD Primary Care Provider [phone] Encounter Details Date Type Department Care Team Description 01/27/2017 Engineering Systems Analyst Report Medical Records [address] [place] [address] Shon Emerson Social History Tobacco Use Types Packs/Day Years [...] on filedocumented in this encounter Care Teams Application Chemist Relationship Specialty Start Date End Date Mendez Roldan MD [address] [place] [id number] PCP - General Internal Medicine 05/08/15 documented as of this encounter
--- OUTSIDE RECORDS SUMMARY | 2025-02-01 01:40 | XMS_ITS | Encounter Summary ---
Author Organization [facility] Address [address] [place] [address] Care Team Providers Care Education And Training Manager Name Role Phone Mendez Roldan MD Primary Care Provider [phone] Reason for Visit * Reason Comments E-prescribe Rx Request Encounter Details Date Type Department Care Team Description 01/15/2017 Refill OBGYN - [place] [address] [place] [address] Sandeep Lam MD E-prescribe Rx Request Social History Tobacco [...] encounter Miscellaneous Notes * Telephone Encounter - Sandeep Lam MD - 01/16/2017 10:01 AM EDT Why are you asking me to change this? There is no 90 day supply for a 3 week course of norethindrone. I did not specify any refills for this. * Telephone Encounter - Tavia Ramos - 01/15/2017 6:23 PM EDT WHEN WAS THE PATIENTS LAST ANNUAL HUNTING SALES LEADER EXAM? Last appt 01-15-17 Does patient have an upcoming appointment? No (THE MEDICATION REQUESTED IS ON THE MED LIST ABOVE) Did you check the Pharmacy information above?: YES Indicate how soon the patient needs the script: BY THE END OF THE DAY Patient would like script to be: E-PRESCRIBED/FAXED TO PHARMACY Is the doctor here today?: yes Can the message wait until the doctor returns?: NO Has the patient been told that the prescription will not be filled until the end of the day? NO [place] / Product Type: MEDICARE [id number] documented in this encounter Plan of Treatment Not on file documented as of this encounter Visit Diagnoses Not on filedocumented in this encounter Care Teams Education And Training Manager Relationship Specialty Start Date End Date Mendez Roldan MD [address] [place] [address] PCP - General Internal Medicine 05/08/15 documented as of this encounter
--- OUTSIDE RECORDS SUMMARY | 2025-02-01 01:40 | XMS_ITS | Encounter Summary ---
Author Organization [facility] Address [address] [place] [address] Care Team Providers Care Worship Director Name Role Phone Mendez Roldan MD Primary Care Provider [phone] Encounter Details Date Type Department Care Team Description 12/02/2016 [facility] Medical Records [address] [place] [id number] Abstract, Provider Social History Tobacco Use Types Packs/Day Years [...] on filedocumented in this encounter Care Teams Worship Director Relationship Specialty Start Date End Date Mendez Roldan MD [address] [place] [address] PCP - General Internal Medicine 05/08/15 documented as of this encounter
--- OUTSIDE RECORDS SUMMARY | 2025-02-01 01:40 | XMS_ITS | Encounter Summary ---
Author Organization [facility] Address [address] [place] [address] Care Team Providers Care Insurance Commissioner Name Role Phone Mendez Roldan MD Primary Care Provider [phone] Reason for Visit * Reason Onset Date Comments Medication 08/26/2023 Encounter Details Date Type Department Care Team Description 08/26/2023 Refill Gastroenterology - [address] [place] [address] [phone] Elida Steinberg MD [address] [place] [address] Medication Social History Tobacco Use Types Packs/Day Years [...] on filedocumented in this encounter Care Teams Insurance Commissioner Relationship Specialty Start Date End Date Mendez Roldan MD [address] [place] [address] PCP - General Internal Medicine 05/08/15 documented as of this encounter
--- OUTSIDE RECORDS SUMMARY | 2025-02-01 01:40 | XMS_ITS | Encounter Summary ---
Author Organization [facility] Address [address] [place] [address] Care Team Providers Care Camera Systems Engineer Name Role Phone Mendez Roldan MD Primary Care Provider [phone] Reason for Visit * Reason Comments E-prescribe Rx Request Encounter Details Date Type Department Care Team Description 12/17/2023 Refill Adult Medicine - [place] [address] [place] [address] Pratima Jones NP [address] [place] [phone] E-prescribe Rx Request Social History Tobacco Use [...] encounter Miscellaneous Notes * Telephone Encounter - Claudine Motta M.A. - 12/17/2023 8:35 AM EDT Date of last office visit was 08/22/23. Lab Results Component Value Date NA 139 08/27/2021 K 3.7 08/27/2021 CO2 31 08/27/2021 CL 103 08/27/2021 BUN 8 08/27/2021 CREAT 0.69 08/27/2021 GLU 74 08/27/2021 CA 9.4 08/27/2021 GFR > 60 08/27/2021 documented in this encounter Plan of Treatment Not on file documented as of this encounter Visit Diagnoses Not on filedocumented in this encounter Care Teams Camera Systems Engineer Relationship Specialty Start Date End Date Mendez Roldan MD [address] [place] [address] PCP - General Internal Medicine 05/08/15 documented as of this encounter
--- OUTSIDE RECORDS SUMMARY | 2025-02-01 01:40 | XMS_ITS | Encounter Summary ---
Author Organization [facility] Address [address] [place] [address] Care Team Providers Care Rust Proofer Name Role Phone Mendez Roldan MD Primary Care Provider [phone] Encounter Details Date Type Department Care Team Description 03/28/2020 Hospital Medical Records [address] [place], [place] [address] [place] [address] Social History Tobacco Use Types Packs/Day Years [...] file Not on file Not on file COVID-19 Exposure Response Date Recorded In the last month, have you been in contact with someone who was confirmed or suspected to have Coronavirus / COVID-19? No / Unsure 03/31/2020 9:26 AM EST documented as of this encounter Plan of Treatment Not on file documented as of this encounter Procedures Procedure Name Priority Date/Time Associated Diagnosis Comments OUTSIDE PLAIN FILM Routine 03/28/2020 documented in this encounter Results * OUTSIDE PLAIN FILM (03/28/2020) Provider Default RADIOLOGY documented in this encounter Visit Diagnoses Not on filedocumented in this encounter Care Teams Rust Proofer Relationship Specialty Start Date End Date Mendez Roldan MD [address] [place] [address] PCP - General Internal Medicine 05/08/15 documented as of this encounter
--- OUTSIDE RECORDS SUMMARY | 2025-02-01 01:40 | XMS_ITS | Encounter Summary ---
Author Organization [facility] Address [address] [place] [address] Care Team Providers Care Gristmiller Name Role Phone Mendez Roldan MD Primary Care Provider [phone] Encounter Details Date Type Department Care Team Description 02/19/2018 Orders Only Medical Records [address] [place] [address] Abstract, Provider Social History Tobacco Use Types [...] Name Priority Date/Time Associated Diagnosis Comments OUTSIDE PATHOLOGY Routine 01/28/2018 documented in this encounter Results * OUTSIDE PATHOLOGY (01/28/2018) Provider Abstract OUTSIDE LAB documented in this encounter Visit Diagnoses Not on filedocumented in this encounter Care Teams Gristmiller Relationship Specialty Start Date End Date Mendez Roldan MD [address] [place] [address] PCP - General Internal Medicine 05/08/15 documented as of this encounter
--- OUTSIDE RECORDS SUMMARY | 2025-02-01 01:40 | XMS_ITS | Encounter Summary ---
Author Organization [facility] Address [address] [place] [address] Care Team Providers Care Drill Grinder Name Role Phone Mendez Roldan MD Primary Care Provider [phone] Reason for Visit * Reason Onset Date Comments refill request 10/01/2023 Encounter Details Date Type Department Care Team Description 10/01/2023 Refill Gastroenterology - [address] [place] [phone] Elida Steinberg MD [address] [place] [address] refill request Social History Tobacco Use Types [...] on filedocumented in this encounter Care Teams Drill Grinder Relationship Specialty Start Date End Date Mendez Roldan MD [address] [place] [address] PCP - General Internal Medicine 05/08/15 documented as of this encounter
--- OUTSIDE RECORDS SUMMARY | 2025-02-01 01:40 | XMS_ITS | Encounter Summary ---
Author Organization [facility] Address [address] [place] [address] Care Team Providers Care Environmental Systems Coordinator Name Role Phone Mendez Roldan MD Primary Care Provider [phone] Reason for Visit * Reason Comments E-prescribe Rx Request Encounter Details Date Type Department Care Team Description 01/15/2024 Refill Gastroenterology [address] [place] [address] [phone] Jay Philip PA-C E-prescribe Rx Request Social History Tobacco Use [...] encounter Miscellaneous Notes * Telephone Encounter - Yesenia Marcial M.A. - 01/15/2024 10:31 AM EDT Arie: 07/31/2023 EGD/Colon: 02/11/2024 documented in this encounter Plan of Treatment Not on file documented as of this encounter Visit Diagnoses Not on filedocumented in this encounter Care Teams Environmental Systems Coordinator Relationship Specialty Start Date End Date Mendez Roldan MD [address] [place] [address] PCP - General Internal Medicine 05/08/15 documented as of this encounter
--- OUTSIDE RECORDS SUMMARY | 2025-02-01 01:40 | XMS_ITS | Encounter Summary ---
Author Organization [facility] Address [address] [place] [address] Care Team Providers Care Expansion Joint Finisher Name Role Phone Mendez Roldan MD Primary Care Provider [phone] Reason for Visit * Reason Onset Date Comments EKG 02/12/2024 Encounter Details Date Type Department Care Team Description 02/12/2024 Telephone Cardio PVCA Diag Testing [address] [address] Mendez Roldan MD [address] [place] [address] EKG Social History Tobacco Use Types Packs/Day Years [...] encounter Miscellaneous Notes * Telephone Encounter - Deneen Borges PA-C - 02/12/2024 3:53 PM EDT EKG dated 02/09/2024 was reviewed. OK to schedule ETT as ordered by ordering provider Please do notreply back to this sender directly- if there are further questions, please reply back to P PVC Orders pool. Thank you * Telephone Encounter - Iman Lopez - 02/12/2024 10:56 AM EDT An ETT has been ordered for this patient. Please review the EKG from 02/09/24 to determine if it is OK to proceed with scheduling or if othertesting is recommended. Thank you! documented in this encounter Plan of Treatment Not on file documented as of this encounter Visit Diagnoses Not on filedocumented in this encounter Care Teams Expansion Joint Finisher Relationship Specialty Start Date End Date Mendez Roldan MD [address] [place] [address] PCP - General Internal Medicine 05/08/15 documented as of this encounter
--- OUTSIDE RECORDS SUMMARY | 2025-02-01 01:40 | XMS_ITS | Encounter Summary ---
Author Organization [facility] Address [address] [place] [address] Care Team Providers Care Soil Sampler Name Role Phone Mendez Roldan MD Primary Care Provider [phone] Reason for Visit * Reason Onset Date Comments Medication 01/28/2024 Encounter Details Date Type Department Care Team Description 01/28/2024 Refill Gastroenterology - [address] [place] [phone] Elida Steinberg MD [address] [place] [address] Medication Social History Tobacco Use Types Packs/Day [...] on filedocumented in this encounter Care Teams Soil Sampler Relationship Specialty Start Date End Date Mendez Roldan MD [address] [place] [address] PCP - General Internal Medicine 05/08/15 documented as of this encounter
--- OUTSIDE RECORDS SUMMARY | 2025-02-01 01:40 | XMS_ITS | Encounter Summary ---
Author Organization [facility] Address [address] [place] [address] Care Team Providers Care Toe Pounder Name Role Phone Mendez Roldan MD Primary Care Provider [phone] Encounter Details Date Type Department Care Team Description 12/18/2016 Animal Ride Attendant Report Medical Records [address] [place] [address] Elayne Yanez MD Social History Tobacco Use Types Packs/Day [...] on filedocumented in this encounter Care Teams Toe Pounder Relationship Specialty Start Date End Date Mendez Roldan MD [address] [place] [address] PCP - General Internal Medicine 05/08/15 documented as of this encounter
--- OUTSIDE RECORDS SUMMARY | 2025-02-01 01:40 | XMS_ITS | Encounter Summary ---
Author Organization [facility] Address [address] [place] [address] Care Team Providers Care Child Adolescent Care Name Role Phone Mendez Roldan MD Primary Care Provider [phone] Encounter Details Date Type Department Care Team Description 01/28/2018 Hospital Medical Records [address] [place] [address] Sho Barrow MD [address] [place] [address] [address] [place] [address] Social History Tobacco Use Types Packs/Day Years [...] on filedocumented in this encounter Care Teams Child Adolescent Care Relationship Specialty Start Date End Date Mendez Roldan MD [address] [place] [address] PCP - General Internal Medicine 05/08/15 documented as of this encounter
--- OUTSIDE RECORDS SUMMARY | 2025-02-01 01:40 | XMS_ITS | Encounter Summary ---
Author Organization [facility] Address [address] [place] [address] Care Team Providers Care Quality Control Systems Manager Name Role Phone Mendez Roldan MD Primary Care Provider [phone] Encounter Details Date Type Department Care Team Description 07/02/2019 Refill Gastroenterology [address] [address] Mendez Spear MD Social History Tobacco Use Types Packs/Day [...] Telephone Encounter - Marietta Silverman M.A. - 07/05/2019 8:22 AM EDT Last office visit 05/20/2019 documented in this encounter Plan of Treatment Not on file documented as of this encounter Visit Diagnoses Not on filedocumented in this encounter Care Teams Quality Control Systems Manager Relationship Specialty Start Date End Date Mendez Roldan MD [address] [place] [address] PCP - General Internal Medicine 05/08/15 documented as of this encounter
--- OUTSIDE RECORDS SUMMARY | 2025-02-01 01:40 | XMS_ITS | Encounter Summary ---
Author Organization [facility] Address [address] [place] [address] Care Team Providers Care Freight Flagman Name Role Phone Mendez Roldan MD Primary Care Provider [phone] Encounter Details Date Type Department Care Team Description 02/21/2018 Hospital Medical Records [address] [place], [place] [phone] [place] [address] Social History Tobacco Use Types Packs/Day Years [...] filedocumented in this encounter Care Teams Freight Flagman Relationship Specialty Start Date End Date Mendez Roldan MD [address] [place] [address] PCP - General Internal Medicine 05/08/15 documented as of this encounter
--- OUTSIDE RECORDS SUMMARY | 2025-02-01 01:40 | XMS_ITS | Encounter Summary ---
Author Organization [facility] Address [address] [place] [address] Care Team Providers Care Head Of It Name Role Phone Mendez Roldan MD Primary Care Provider [phone] Reason for Visit * Reason Onset Date Comments Faxed Order 12/08/2015 Luis Daniel Encounter Details Date Type Department Care Team Description 12/08/2015 Telephone Adult Medicine [address] [address] Mendez Roldan MD [address] [place] [address] Faxed Order (Luis Daniel) Social History Tobacco Use Types Packs/Day Years [...] encounter Miscellaneous Notes * Telephone Encounter - Mateusz Jimenez - 12/08/2015 11:13 AM EDT Faxed orders from [facility]. Sent to [facility] for review, signature, and fax. Thank you. documented in this encounter Plan of Treatment Not on file documented as of this encounter Visit Diagnoses Not on filedocumented in this encounter Care Teams Head Of It Relationship Specialty Start Date End Date Mendez Roldan MD [address] [place] [address] PCP - General Internal Medicine 05/08/15 documented as of this encounter
--- OUTSIDE RECORDS SUMMARY | 2025-02-01 01:41 | XMS_ITS | Encounter Summary ---
Author Organization [facility] Address [address] [place] [address] Care Team Providers Care Research Associate Name Role Phone Mendez Roldan MD Primary Care Provider [phone] Encounter Details Date Type Department Care Team Description 08/06/2017 Orders Only Medical Records [address] [place] [address] Leyla Riojas DO Social History Tobacco Use Types Packs/Day Years [...] Date/Time Associated Diagnosis Comments OUTSIDE PATHOLOGY Routine 08/04/2017 documented in this encounter Results * OUTSIDE PATHOLOGY (08/04/2017) Leyla Riojas DO OUTSIDE LAB documented in this encounter Visit Diagnoses Not on filedocumented in this encounter Care Teams Research Associate Relationship Specialty Start Date End Date Mendez Roldan MD [address] [place] [address] PCP - General Internal Medicine 05/08/15 documented as of this encounter
--- OUTSIDE RECORDS SUMMARY | 2025-02-01 01:41 | XMS_ITS | Encounter Summary ---
Author Organization [facility] Address [address] [place] [address] Care Team Providers Care Administrative Processor Name Role Phone Mendez Roldan MD Primary Care Provider [phone] Reason for Visit * Reason Onset Date Comments Prior Authorization 10/30/2022 Encounter Details Date Type Department Care Team Description 10/30/2022 Telephone Gastroenterology - [address] [place] [address] Jay Philip PA-C Prior Authorization Social History Tobacco Use Types Packs/Day Years [...] Exposure Response Date Recorded In the last 10 days, have yo u been in contact with someone who was confirmed or suspected to have Coronavirus/COVID-19? No / Unsure 10/18/2022 12:32 PM EDT documented as of this encounter Miscellaneous Notes * Telephone Encounter - Jay Philip PA-C - 11/01/2022 4:49 PM EDT Before Linzess can be ordered, he she has to use Amitiza and fill it before the Linzess can be ordered. The Amitiza has been ordered. The prescription for Amitiza has been sent to [facility] in [place] * Telephone Encounter - Reyna Pelaez - 11/01/2022 3:34 PM EDT Please advise. Was Cam's patient (AIDE 11/01/21) * Telephone Encounter - Lucia Mckeon M.A. - 10/31/2022 1:57 PM EDT Per insurance, auth denied Pt must try and fail lubiprostone first Lucia Mckeon Prior Auth Dep Ext [id number] * Telephone Encounter - Staci Peraza - 10/30/2022 1:36 PM EDT Prior Authorization for Medication-do not complete and send this encounter unless you have the fax from the pharmacy. Is this a Cover My Meds request: Yes -- Ramírez Code [id number] Name of Medication linzess Dose of Medication 145mcg What is the RX # from the faxed refill? Not on fax How does patient take this med? Not on fax What Pharmacy did the fax come from: [facility] fax #: [phone] [employer] Information from fax: What Prescription Plan does the patient have? N/a BIN/PCN if applicable: not on fax Cardholder ID:not on fax Person Code: not on fax Relationship Code: not on fax Help desk phone: [phone] documented in this encounter Plan of Treatment Not on file documented as of this encounter Visit Diagnoses Not on filedocumented in this encounter Care Teams Administrative Processor Relationship Specialty Start Date End Date Mendez Roldan MD [address] [place] [address] PCP - General Internal Medicine 05/08/15 documented as of this encounter
--- OUTSIDE RECORDS SUMMARY | 2025-02-01 01:41 | XMS_ITS | Encounter Summary ---
Author Organization [facility] Address [address] [place] [address] Care Team Providers Care Potato Loader Name Role Phone Mendez Roldan MD Primary Care Provider [phone] Encounter Details Date Type Department Care Team Description 02/14/2016 Balance Bridge Assembler Report Medical Records [address] [place] [address] Elayne Yanez MD Social History Tobacco Use [...] on filedocumented in this encounter Care Teams Potato Loader Relationship Specialty Start Date End Date Mendez Roldan MD [address] [place] [address] PCP - General Internal Medicine 05/08/15 documented as of this encounter
--- OUTSIDE RECORDS SUMMARY | 2025-02-01 01:41 | XMS_ITS | Encounter Summary ---
Author Organization [facility] Address [address] [place] [address] Care Team Providers Care Casino Controller Name Role Phone Mendez Roldan MD Primary Care Provider [phone] Encounter Details Date Type Department Care Team Description 01/04/2019 Orders Only Medical Records [address] [place] [address] Abstract, Provider Social History Tobacco Use Types [...] Name Priority Date/Time Associated Diagnosis Comments OUTSIDE ULTRASOUND Routine 01/03/2019 documented in this encounter Results * OUTSIDE ULTRASOUND (01/03/2019) Provider Abstract RADIOLOGY documented in this encounter Visit Diagnoses Not on filedocumented in this encounter Care Teams Casino Controller Relationship Specialty Start Date End Date Mendez Roldan MD [address] [place] [address] PCP - General Internal Medicine 05/08/15 documented as of this encounter
--- OUTSIDE RECORDS SUMMARY | 2025-02-01 01:41 | XMS_ITS | Encounter Summary ---
Author Organization [facility] Address [address] [place] [address] Care Team Providers Care Warp Trucker Name Role Phone Mendez Roldan MD Primary Care Provider [phone] Reason for Visit * Reason Onset Date Comments TEST RESULTS 09/03/2018 Encounter Details Date Type Department Care Team Description 09/03/2018 Telephone OBGYN - [facility] [address] [place] [address] Leyla Riojas DO TEST RESULTS Social History Tobacco Use Types Packs/Day Years [...] encounter Miscellaneous Notes * Telephone Encounter - Linda Aguirre M.A. - 09/03/2018 12:13 PM EDT Message left for pt to call back [phone] * Telephone Encounter - Linda Aguirre M.A. - 09/03/2018 12:12 PM EDT ----- Message from Leyla Riojas DO sent at 09/03/2018 11:43 AM EDT ----- Please call patient and let her know ultrasound was reviewed - there is a cyst on her right ovary, and while it could contribute to some discomfort it is not concerning in appearance (simple cyst) and I would not advise any acute intervention. We can get a repeat ultrasound in 4-6 weeks to evaluatewhether it gets smaller/goes away. If patient continues to have discmofort we can discuss options to suppress cyst formation, but given patient's surgical history I would not advise any surgical planning at this point. Telephone Information: documented in this encounter Plan of Treatment Not on file documented as of this encounter Visit Diagnoses Not on filedocumented in this encounter Care Teams Warp Trucker Relationship Specialty Start Date End Date Mendez Roldan MD [address] [place] [address] PCP - General Internal Medicine 05/08/15 documented as of this encounter
--- OUTSIDE RECORDS SUMMARY | 2025-02-01 01:41 | XMS_ITS | Encounter Summary ---
Author Organization [facility] Address [address] [place] [address] Care Team Providers Care Process Tank Tender Name Role Phone Mendez Roldan MD Primary Care Provider [phone] Encounter Details Date Type Department Care Team Description 02/24/2017 Manager Career Report Medical Records [address] [place] [address] [facility] Surgical [address] [place] [address] Social History Tobacco Use Types Packs/Day Years [...] on filedocumented in this encounter Care Teams Process Tank Tender Relationship Specialty Start Date End Date Mendez Roldan MD [address] [place] [address] PCP - General Internal Medicine 05/08/15 documented as of this encounter
--- OUTSIDE RECORDS SUMMARY | 2025-02-01 01:41 | XMS_ITS | Encounter Summary ---
Author Organization [facility] Address [address] [place] [address] Care Team Providers Care Caramel Coloring Operator Name Role Phone Mendez Roldan MD Primary Care Provider [phone] Reason for Visit * Reason Onset Date Comments Electronic Typesetting Machine Operator Feedback 09/13/2015 Neurology Encounter Details Date Type Department Care Team Description 09/13/2015 Telephone Adult Medicine B - [address] [address] Katerina Beckett FNP Electronic Typesetting Machine Operator Feedback (Neurology) Social History Tobacco Use Types Packs/Day Years [...] encounter Miscellaneous Notes * Telephone Encounter - ROSANNE Del Toro - 09/13/2015 11:46 AM EDT Appointment is ok * Telephone Encounter - Yovani Patel - 09/13/2015 10:54 AM EDT FYI to Katerina Weinberg, You referred patient to see Neurology within a 1-2 weeks priority, but the soonest I could schedulethe patient for is 10/19/2015. If you feel patient needs to be seen sooner please call and speak with Dr. Yanez at [phone]. If appointment is acceptable please document and close encounter. A letter has been mailed to the patient with appointment information. If the appointment information changes please contact the patient with new appointment information. Thank you, Rich Referrals Physician Recruiter [facility] Referrals Department documented in this encounter Plan of Treatment Not on file documented as of this encounter Visit Diagnoses Not on filedocumented in this encounter Care Teams Caramel Coloring Operator Relationship Specialty Start Date End Date Mendez Roldan MD [address] [place] [address] PCP - General Internal Medicine 05/08/15 documented as of this encounter
--- OUTSIDE RECORDS SUMMARY | 2025-02-01 01:41 | XMS_ITS | Encounter Summary ---
Author Organization [facility] Address [address] [place] [address] Care Team Providers Care Electrocardiograph Repairer Name Role Phone Mendez Roldan MD Primary Care Provider [phone] Reason for Visit * Reason Onset Date Comments Prior Authorization 11/02/2021 CT Abd & Pel Encounter Details Date Type Department Care Team Description 11/02/2021 Telephone Gastroenterology - [address] [address] Cisco Dodge PA-C Prior Authorization (CT Abd & Pel) Social History Tobacco Use Types Packs/Day Years [...] suspected to have Coronavirus/COVID-19? No / Unsure 11/01/2021 10:28 AM EDT documented as of this encounter Miscellaneous Notes * Telephone Encounter - Dot Guevara - 11/02/2021 12:09 PM EDT [facility] - Auth Pending Auth request, clinicals faxed to [facility]. documented in this encounter Plan of Treatment Not on file documented as of this encounter Visit Diagnoses Not on filedocumented in this encounter Care Teams Electrocardiograph Repairer Relationship Specialty Start Date End Date Mendez Roldan MD [address] [place] [address] PCP - General Internal Medicine 05/08/15 documented as of this encounter
--- OUTSIDE RECORDS SUMMARY | 2025-02-01 01:41 | XMS_ITS | Encounter Summary ---
Author Organization [facility] Address [address] [place] [address] Care Team Providers Care Nut Picker Name Role Phone Mendez Roldan MD Primary Care Provider [phone] Encounter Details Date Type Department Care Team Description 11/13/2018 Sheet Metal Operator Report Medical Records [address] [place] [address] William German II Social History Tobacco Use Types Packs/Day Years [...] on filedocumented in this encounter Care Teams Nut Picker Relationship Specialty Start Date End Date Mendez Roldan MD [address] [place] [address] PCP - General Internal Medicine 05/08/15 documented as of this encounter
--- OUTSIDE RECORDS SUMMARY | 2025-02-01 01:41 | XMS_ITS | Encounter Summary ---
Author Organization [facility] Address [address] [place] [address] Care Team Providers Care Laborer Prestressed Concrete Name Role Phone Mendez Roldan MD Primary Care Provider [phone] Encounter Details Date Type Department Care Team Description 02/15/2019 Orders Only Medical Records [address] [place] [address] Abstract, Provider Social History Tobacco Use Types [...] Name Priority Date/Time Associated Diagnosis Comments OUTSIDE CT Routine 02/14/2019 OUTSIDE PLAIN FILM Routine 02/14/2019 documented in this encounter Results * OUTSIDE PLAIN FILM (02/14/2019) Provider Abstract RADIOLOGY * OUTSIDE CT (02/14/2019) Provider Abstract RADIOLOGY documented in this encounter Visit Diagnoses Not on filedocumented in this encounter Care Teams Laborer Prestressed Concrete Relationship Specialty Start Date End Date Mendez Roldan MD [address] [place] [address] PCP - General Internal Medicine 05/08/15 documented as of this encounter
--- OUTSIDE RECORDS SUMMARY | 2025-02-01 01:41 | XMS_ITS | Encounter Summary ---
Author Organization [facility] Address [address] [place] [address] Care Team Providers Care Netezza Developer Name Role Phone Mendez Roldan MD Primary Care Provider [phone] Encounter Details Date Type Department Care Team Description 10/02/2020 Machine Crater Report Medical Records [address] [place] [address] Zackery Garza MD Social History Tobacco Use [...] on filedocumented in this encounter Care Teams Netezza Developer Relationship Specialty Start Date End Date Mendez Roldan MD [address] [place] [address] PCP - General Internal Medicine 05/08/15 documented as of this encounter
--- OUTSIDE RECORDS SUMMARY | 2025-02-01 01:41 | XMS_ITS | Encounter Summary ---
Author Organization [facility] Address [address] [place] [address] Care Team Providers Care Chief Architect Name Role Phone Mendez Roldan MD Primary Care Provider [phone] Encounter Details Date Type Department Care Team Description 07/27/2021 [employer] Truck Driver Report Medical Records [address] [place] [address] Annemarie Dillard PA-C Social History Tobacco Use Types Packs/Day Years [...] on filedocumented in this encounter Care Teams Chief Architect Relationship Specialty Start Date End Date Mendez Roldan MD [address] [place] [address] PCP - General Internal Medicine 05/08/15 documented as of this encounter
--- OUTSIDE RECORDS SUMMARY | 2025-02-01 01:41 | XMS_ITS | Encounter Summary ---
Author Organization [facility] Address [address] [place] [address] Care Team Providers Care Scruff Worker Name Role Phone Mendez Roldan MD Primary Care Provider [phone] Encounter Details Date Type Department Care Team Description 12/17/2018 Orders Only Medical Records [address] [place] [address] Abstract, Provider Gastroparesis Social History Tobacco Use Types Packs/Day Years Used Date Smoking Tobacco: Former Cigarettes 0.5 Q uit: 11/28/2010 Smokeless Tobacco: Never Alcohol Use Standard Drinks/Week Comments No 0 (1 standard drink = 0.6 oz pur e alcohol) Sex Assigned at Date Recorded Not on file Job Start Date Occupation Industry Not on file Not on file Not on file documented as of this encounter Progress Notes * Sho Barrow MD - 12/18/2018 4:36 PM EDT The normal results of the studies were left on the patient voicemail. Has a follow-up appointment. documented in this encounter Plan of Treatment Not on file documented as of this encounter Procedures Procedure Name Priority Date/Time Associated Diagnosis Comments GASTRIC EMPTYNG IMAG STD W/S M BWL TRANSIT Routine 12/16/2018 Gastroparesis documented in this encounter Results * GASTRIC EMPTYNG IMAG STD W/SM BWL TRANSIT (12/16/2018) Sho Barrow MD NUCLEAR documented in this encounter Visit Diagnoses Diagnosis Gastroparesis documented in this encounter Care Teams Scruff Worker Relationship Specialty Start Date End Date Mendez Roldan MD [address] [place], [place] [id number] PCP - General Internal Medicine 05/08/15 documented as of this encounter
--- OUTSIDE RECORDS SUMMARY | 2025-02-01 01:41 | XMS_ITS | Encounter Summary ---
Author Organization [facility] Address [address] [place] [address] Care Team Providers Care Electrotype Finisher Name Role Phone Mendez Roldan MD Primary Care Provider [phone] Encounter Details Date Type Department Care Team Description 05/05/2023 Orders Only Medical Records [address] [place], [place] [id number] [place] [address] Social History Tobacco Use Types Packs/Day Years [...] Associated Diagnosis Comments OUTSIDE PLAIN FILM Routine 04/27/2023 documented in this encounter Results * OUTSIDE PLAIN FILM (04/27/2023) [facility] RADIOLOGY documented in this encounter Visit Diagnoses Not on filedocumented in this encounter Care Teams Electrotype Finisher Relationship Specialty Start Date End Date Mendez Roldan MD [address] [place] [address] PCP - General Internal Medicine 05/08/15 documented as of this encounter
--- OUTSIDE RECORDS SUMMARY | 2025-02-01 01:41 | XMS_ITS | Encounter Summary ---
Author Organization [facility] Address [address] [place] [address] Care Team Providers Care Wan Support Specialist Name Role Phone Community, Pcp Primary Care Provider Mendez Delgado MD Primary Care Provider [phone] [facility], Pcp Primary Care Provider Mendez Delgado MD Primary Care Provider [phone] Encounter Details Date Type Department Care Team Description 09/20/2014 Transfer Records Medical Records [address] [place] [address] Abstract, Provider Social History Tobacco Use Types Packs/Day Years Used Date Smoking Tobacco: Never Alcohol Use Standard Drinks/Week Comments [...] on filedocumented in this encounter Care Teams Wan Support Specialist Relationship Specialty Start Date End Date Community, Pcp PCP - General Internal Medicine 06/10/14 04/05/15 Mendez Roldan MD [address] [place] [id number] PCP - General Internal Medicine 04/06/15 04/30/15 Community, Pcp PCP - General Internal Medicine 05/01/15 05/07/15 Mendez Roldan MD [address] [place] [address] PCP - General Internal Medicine 05/08/15 documented as of this encounter
--- OUTSIDE RECORDS SUMMARY | 2025-02-01 01:41 | XMS_ITS | Clinical Summary ---
Author Organization [place] [address] [facility] Address [address] [place] [phone] Phone Care Team Providers Care Parking Ramp Attendant Name Role Phone Mendez Roldan MD Primary Care Provider [phone] Allergies Active Allergy Reactions Criticality Noted Date Comments Adhesive Rash Medium 03/16/2018 Levofloxacin Rash 06/03/2017 Penicillins Rash,Swelling High 02/19/2013 Medications ondansetron ODT (ZOFRAN-ODT) 4 mg disintegrating tablet Take 2 tablets (8 mg total) by mouth every 8 (eight) hours if needed for nausea. 30 tablet 11 025 Active cloNIDine (CATAPRES) 0.1 mg tablet 015 Active cholecalciferol (VITAMIN D-3) 50 mcg (2,000 unit) capsule Take 1 capsule (2,000 Units total) by mouth 1 (one) time each day. 024 Active clotrimazole-beta methasone (LOTRISONE) 1-0.05 % cream Apply 1 Application topically 2 (two) times a day. 022 Active cyanocobalamin (VITAMIN B-12) 1,000 mcg/mL injection Inject 1 mL (1,000 mcg total) under the skin every 30 (thirty) days. 019 Active diclofenac (VOLTAREN) 1 % topical gel Apply topically 2 (two) times a day if needed. 024 Active famotidine (PEPCID) 20 mg tablet Take 1 tablet (20 mg total) by mouth 2 (two) times a day if needed. 024 Active pantoprazole (PROTONIX) 40 mg EC tablet Take 1 tablet (40 mg total) by mouth 1 (one) time each day before breakfast. 024 Active topiramate (TOPAMAX) 50 mg tablet Take 1 tablet (50 mg total) by mouth 2 (two) times a day. Active gabapentin (NEURONTIN) 300 mg capsule Take 1 capsule (300 mg total) by mouth at bedtime. 90 capsule 025 Active ipratropium-albut Shantelle (DUONEB) 0.5-2.5 mg/3 mL nebulizer solutionIndicatio ns:ALEXUS (obstructive sleep apnea),Asthma, unspecified asthma severity, unspecified whether complicated, unspecified whether persistent Take 3 mL by nebulization 1 (one) time each day. 300 mL 1 025 Active hydrOXYzine pamoate (VISTARIL) 50 mg capsuleIndication s:Insomnia, unspecified type Take 1 capsule (50 mg total) by mouth 3 (three) times a day if needed for anxiety or itching. 30 capsule 025 Active lubiprostone (AMITIZA) 24 mcg capsule TAKE 1 CAPSULE BY MOUTH TWICE DAILY WITH MEALS 60 capsule 025 Active albuterol HFA (PROAIR HFA ; PROVENTIL HFA ; VENTOLIN HFA) 90 mcg/actuation inhaler INHALE 2 PUFFS INTO THE LUNGS EVERY 6 HOURS NEEDED FOR COUGH OR WHEEZING 8.5 g 025 Active budesonide-formot Shantelle (SYMBICORT) 160-4.5 mcg/actuation inhalerIndication s:Asthma, unspecified asthma severity, unspecified whether complicated, unspecified whether persistent INHALE 2 PUFFS BY MOUTH TWICE DAILY. RINSE MOUTH WITH WATER AFTER USE FOR AFTERTASTE AND INCIDENCE OF CANDIDIASIS. DO NOT SWALLOW 30.6 g 3 10/02/2 025 Active budesonide-formot Shantelle (Symbicort) 160-4.5 mcg/actuation inhalerIndication s:Asthma, unspecified asthma severity, unspecified whether complicated, unspecified whether persistent Inhale 2 puffs by mouth 2 (two) times a day. Rinse mouth with water after use to reduce aftertaste and incidence of candidiasis. Do not swallow. 10.2 g 1 025 2024 Discontinued Active Problems Problem Noted Date Diagnosed Date Migraines 05/19/2024 Urinary retention 06/22/2019 LUQ pain 04/08/2019 Vit B12 defic anemia d/t slctv vit B12 malabsorp w protein 06/25/2018 ALEXUS (obstructive sleep apnea) 05/01/2018 Vitamin B12 deficiency 01/01/2018 Mild chronic gastritis 11/06/2017 NAFLD (nonalcoholic fatty liver disease) 017 Vitamin D deficiency 11/08/2016 Gastroparesis 01/17/2016 Chronic constipation 01/17/2016 Fibromyalgia 11/07/2015 Osteoarthritis of both knees 07/14/2015 HTN (hypertension) 05/01/2015 Chronic interstitial cystitis 05/01/2015 Overview (05/19/2024): Since a child. She has Urologist [address]. Depression 05/01/2015 Asthma 09/12/2014 Overview (05/19/2024): Since a child. Encounters Date Type Department Care Team Description 11/10/2024 Telephone Pulmonology - [address] [address] Janneth Waite NP from Last 3 Months Immunizations Immunization Administration Dates Next Due Influenza Quadravalent, MDCK , 0.5ml, preservative free (Flucelvax) 6mo and older 01/08/2019 Influenza Quadravalent, MDCK , 0.5ml, with preservative (Flucelvax) 6mo and older 01/01/2018,01/16/2017 Influenza trivalent, 0.5mL, preservative free (Fluarix; FluLaval; Fluzone) ages 6mo and older (Afluria) 3 years and older 01/11/2016 Influenza trivalent, with pr eservative (Fluzone; Afluria) 6mo and older 05/28/2013 PPD Test 10/22/2016 Pneumococcal polysaccharide 23 valent (Pneumovax 23) 2yo and older 04/02/2016 Tdap Tetanus diptheria acell ular pertussis (Boostrix; Adacel) 7yo and older 09/01/2015 Surgical History Surgery Date Site/Laterality Comments SECTION PROCEDURE: HISTORICAL DELIVERY; COMMENT: three TUBAL LIGATION PROCEDURE: HISTORICAL TUBAL LIGATION SALPINGOOPHORECTOMY 07/19/2014 Left PROCEDURE: ME LAPAROSCOPY W/RMVL ADNEXAL STRUCTURES; COMMENT: serous cystadenoma UPPER GASTROINTESTINAL ENDOSCOPY 06/23/2015 PROCEDURE: ME UPPER GI ENDOSCOPY PERFORMED; COMMENT: retained food in esophagus and stomach; nl esophageal biopsies COLONOSCOPY 02/13/2017 PROCEDURE: HISTORICAL COLONOSCOPY; COMMENT: normal LAPAROSCOPIC GASTRIC BANDING N/A PROCEDURE: LAP ADJUSTABLE GASTRIC BAND KNEE ARTHROSCOPY W/ MENISCAL REPAIR 12/02/2018 Left PROCEDURE: ME ARTHROSCOPY KNEE W/MENISCUS RPR MEDIAL/LATERAL UPPER GASTROINTESTINAL ENDOSCOPY 06/18/2019 PROCEDURE: ME UPPER GI ENDOSCOPY PERFORMED; COMMENT: Normal post-op appearance on omeprazole 40 mg once a day. UPPER GASTROINTESTINAL ENDOSCOPY 10/16/2017 PROCEDURE: ME UPPER GI ENDOSCOPY PERFORMED; COMMENT: normal with biopsy showing mild reactive gastropathy with focal mild chronic inflammation. ABDOMINAL SURGERY 01/28/2018 PROCEDURE: HISTORICAL ABDOMINAL SURGERY; COMMENT: Pushpa; laparoscopic sleeve gastrectomy for obesity. HYSTERECTOMY Medical History Medical History Date Comments Asthma 05/01/2015 DX:Asthma Chronic constipation 01/17/2016 DX:Chronic constipation Chronic interstitial cystitis 05/01/2015 DX :Chronic interstitial cystitis; COMMENT: Since a child. She has Urologist [address]. Depression 05/01/2015 DX:Depression Fibromyalgia 11/07/2015 DX:Fibromyalgia Gastroesophageal reflux dise ase without esophagitis 07/14/2015 DX:Gastroesophageal reflux d isease without esophagitis Gastroparesis 01/17/2016 DX:Gastroparesis HTN (hypertension) 05/01/2015 DX:HTN (hyper tension) Migraines DX:Migraines Mild chronic gastritis 11/06/2017 DX:Mild c hronic gastritis Morbid obesity with BMI of 4 0.0-44.9, adult (CMS/HCC V24, CMS/[facility]ERLY [facility] V28) 10/31/2017 DX:Morbid obesity wit h BMI of 40.0-44.9, adult (FORMER[facility]); COMMENT: Bariatric Surgery Program Surgeon: Initial visit date 02/24/17 [facility] Psychiatry clearance: 05/09/17 Jerzy PCP clearance: Physical: Done. Support groups: Done. Labs: Done. Most recent 09/26/17. Dietitian-Dietary Clearance: Requested weight loss: Last Surgery appt prior to Surgery: Prior Authorization Number: Surgery date goal: NAFLD (nonalcoholic fatty li ricardo disease) 01/01/2017 DX:NAFLD (nonalcoholic fatty liver disease) Osteoarthritis of both knees 07/14/2015 DX: Osteoarthritis of both knees Vitamin D deficiency 11/08/2016 DX:Vitamin D deficiency Family history of colon cancer D X:Family history of colon cancer Dysphagia DX:Dysphagia Anemia Family History Medical History Relation Name Comments Diabetes Brother 1 Seamus Arthritis Father Arley n [place] Nephrolithiasis Maternal Grandfather Breast cancer Maternal Grandmother Christine Heart attack Maternal Grandmother Christine Ovarian cancer Maternal Grandmother Christine Arthritis Mother Father Diabetes Mother Father Hypertension Mother's Sister India Relation Name Status Comments Brother 1 Seamus Alive Brother 2 Brother 3 Daughter 1 Alive Daughter 2 Alive Daughter 3 Alive Father Arley n [place] Alive Maternal Grandfather Maternal Grandmother Christine Mother Father Alive Mother's Sister [place] Sister 1 Alive Sister 2 Alive Social History Tobacco Use Types Packs/Day Years Used Date Smoking Tobacco: Every Day Cigarettes 1 2 Last attempted to quit: 11/28/2010 Smokeless Tobacco: Never Tobacco Cessation:Ready to Q uit: Not Asked; Counseling Given: Not Answered Alcohol Use Standard Drinks/Week Comments No 0 (1 standard drink = 0.6 oz pur e alcohol) Housing Instability Answer Date Recorde d Are you worried that in the next 2 months you may not have stable housing? No 06/08/2024 Food Access & Nutrition Answer Date Rec orded Do you have access to a vari ety of food including fruits and vegetables? No 06/08/2024 Access to Healthcare Answer Date Record ed Within the last 3 months, javier amanda many times did you visit the emergency department for your medical care? 0 06/08/2024 Health Literacy Answer Date Recorded How often do you need to hav e someone help you when you read instructions, pamphlets, or other written material from your doctor or pharmacy? Sometimes 06/08/2024 Caregiver: How often do you need to have someone help you when you read instructions, pamphlets, or other written material from your doctor or pharmacy? Not on file 06/08/2024 Financial Risk Answer Date Recorded How hard is it for you to pa y for the very basics like food, housing, medical care, and air conditioning / heating? Hard 06/08/2024 Transportation Answer Date Recorded Has the lack of transportati on kept you from meetings, work, or from getting things needed for daily living? No Has the lack of transportati on kept you from medical appointments or from getting medications? No 06/08/2024 Social Isolation Answer Date Recorded How often do you feel lonely or isolated from those around you? Sometimes 06/08/2024 Food Risk Answer Date Recorded Within the past 12 months we worried whether our food would run out before we got money to buy more. Sometimes true 025 Within the past 12 months th e food we bought just didn't last and we didn't have money to get more. Sometimes true 06/08/2024 Dependent Care Answer Date Recorded Do you need help finding or paying for care for your loved ones. For example, child care leader or elderly care for an older adult? No 06/08/2024 Education Answer Date Recorded Do you think completing more education or training, like finishing a GED, going to college, or learning a trade, would be helpful for you? N/A 06/08/2024 Employment and Income Answer Date Recor ded During the last four weeks, have you been actively looking for work? No 06/08/2024 Living Situation Answer Date Recorded What is your living situation? Unrecognized valu e 06/08/2024 Comments Unknown Sex and Gender Information Value Date Recorded Sex Assigned at Female 03/25/2023 1:54 PM EST Legal Sex Female 12:25 PM EST Gender Identity Female 03/25/2023 1:54 PM EST Sexual Orientation Not on file Obstetrics History Last Filed Vital Signs Vital Sign Reading Time Taken Comments Blood Pressure 126/76 08/31/2024 2:52 PM EDT Pulse 59 08/31/2024 2:52 PM EDT Temperature 35.9 C (96.7 F) 06/16/2024 1:44 PM EST Respiratory Rate 18 08/31/2024 2:52 PM EDT Oxygen Saturation 100% 08/31/2024 2:52 PM EDT Inhaled Oxygen Concentration - - Weight 58.7 kg (129 lb 6.4 oz) 08/31/2024 2:52 P M EDT Height 157.5 cm (5' 2 ) 08/31/2024 2:52 PM EDT Body Mass Index 23.67 08/31/2024 2:52 PM EDT Plan of Treatment Upcoming Encounters Date Type Department Care Team (Late st Contact Info) Description 02/25/2025 11:00 AM EDT Office Visit Pulmonology - [place] [address] [facility] [address] [place] [address] Janneth Waite NP [facility] [place] [address] Health Maintenance Due Date Last Done Comments Breast Cancer Screening 1978 Colorectal Cancer Screening: Colonoscopy 1978 Hepatitis B Vaccines (1 of 3 - 19+ 3-dose series) 1997 Cervical Cancer Screening: Pap Smear 11/15/1999 Pneumococcal Vaccine: Pediatrics (0 to 5 Years) and At-Risk Patients (6 to 49 Years) (2 of 2 - PCV) 04/02/2017 04/02/2016 HIV Screening 03/26/2022 Hepatitis C Screening 03/26/2022 Medicare Annual Wellness Visit 03/26/2022 COVID-19 Vaccine (3 - season) 2024 01/18/2021, 12/28/2020 Influenza Vaccine (#1) 2024 , 12/28/2020, 02/11/2020, Additional history exists Hypertension/CHF/CAD Annual BMP Blood Test 02/08/2025 02/09/2024 Social Influencers of Health Screening 06/08/2025 06/08/2024 DTaP,Tdap,and Td Vaccines (4 - Td or Tdap) 04/12/2026 04/12/2016, 09/01/2015, 02/15/2015 Cholesterol Screening (Lipid Panel) 02/08/2029 02/09/2024, 02/09/2024 RSV Immunization Adult Patients (1 - 1-dose 75+ series) 2053 Depression Screening Completed 06/08/2024 HIB Vaccines Aged Out No longer eligi ble based on patient's age to complete this topic HPV Vaccines Aged Out No longer eligi ble based on patient's age to complete this topic Hepatitis A Vaccines Aged Out No long er eligible based on patient's age to complete this topic IPV Vaccines Aged Out No longer eligi ble based on patient's age to complete this topic MMR Vaccines Aged Out No longer eligi ble based on patient's age to complete this topic Meningococcal ACWY Vaccine Aged Out N o longer eligible based on patient's age to complete this topic Meningococcal B Vaccine Aged Out No l onger eligible based on patient's age to complete this topic RSV Immunization Patients Under 20 months Aged Out No longer eligible based on patient's age to complete this topic Varicella Vaccines Aged Out No longer eligible based on patient's age to complete this topic Procedures Procedure Name Priority Date/Time Associated Diagnosis Comments POLYSOMNOGRAPHY Routine 11/30/2024 1:19 PM EDT HOME SLEEP TEST Routine 11/24/2024 2:53 PM EDT LIPID PANEL Routine 02/09/2024 from Last 3 Months or Most Recently Relevant to Health Maintenance Results * Polysomnography (11/30/2024 1:19 PM EDT) [facility] Provider SLEEP CENTER ORDERABLES F inal Result * Home sleep test (11/24/2024 2:53 PM EDT) [facility] Provider SLEEP CENTER ORDERABLES F inal Result * Lipid panel (02/09/2024) LDL/HDL Ratio 2 Triglycerides 62 mg/dL Cholesterol 146 mg/dL HDL 61 mg/dL LDL Cholesterol 73 mg/dL Blood Venous blood specimen / Unknown [facility] Provider LAB BLOOD ORDERABLES Shira l Result from Last 3 Months or Most Recently Relevant to Health Maintenance Insurance [facility] MEDICARE Member Subscriber Plan / Payer (Ef fective 2017-Present) Name:JOLENE BISHOP Relation to Subscriber:Self Name:Jolene Bishop Payer ID:[id number] Group ID:[id number] Type:Not on file Address: [place] [address] [place] [address] Care Teams Parking Ramp Attendant Relationship Specialty Start Date End Date Mendez Roldan MD [address] [place] [address] PCP - General Internal Medicine 04/06/15
--- OUTSIDE RECORDS SUMMARY | 2025-02-01 01:41 | XMS_ITS | Encounter Summary ---
Author Organization [facility] Address [address] [place] [address] Care Team Providers Care Bottomer Operator Name Role Phone Mendez Roldan MD Primary Care Provider [phone] Encounter Details Date Type Department Care Team Description 04/11/2022 Refill Adult Medicine [address] [address] Mendez Roldan MD [address] [place] [id number] Social History Tobacco Use Types Packs/Day Years [...] encounter Miscellaneous Notes * Telephone Encounter - Shari Wade M.A. - 04/11/2022 8:39 AM ESTFrom: Mikhail Oden To: Office of Jo Roldan Sent: 04/11/2022 6:17 AM EST Subject: Medication Renewal Request Refills have been requested for the following medications: Other - Prescription for asma machine [id number] [place], [place] - [facility] Medication renewals requested in this message routed separately: Dic lofenac Sodium (VOLTAREN) 1 % Gel [Jo Roldan MD] Ipratropium-Albuterol 0.5-2.5 (3) MG/3ML Solution [Amadeo Wright PA-C] Flovent HFA 110 MCG/ACT inhaler [Amadeo Wright PA-C] ALBUTEROL SULFATE 108 (90 Base) MCG/ACT Aero Soln [Amadeo Wright PA-C] alclomethasone (ACLOVATE) 0.05 % cream [Alan Bernal PA-C] clotrimazole (LOTRIMIN) 1 % cream [Alan Bernal PA-C] documented in this encounter Plan of Treatment Not on file documented as of this encounter Visit Diagnoses Diagnosis Vitamin B12 deficiency Other B-complex deficiencies documented in this encounter Care Teams Bottomer Operator Relationship Specialty Start Date End Date Mendez Roldan MD [address] [place] [address] PCP - General Internal Medicine 05/08/15 documented as of this encounter
--- OUTSIDE RECORDS SUMMARY | 2025-02-01 01:41 | XMS_ITS | Encounter Summary ---
Author Organization [facility] Address [address] [place] [address] Care Team Providers Care Bet Taker Name Role Phone Mendez Roldan MD Primary Care Provider [phone] Encounter Details Date Type Department Care Team Description 08/13/2016 Swatcher Report Medical Records [address] [place] [address] Zackery Garza MD Social History Tobacco Use [...] on filedocumented in this encounter Care Teams Bet Taker Relationship Specialty Start Date End Date Mendez Roldan MD [address] [place] [address] PCP - General Internal Medicine 05/08/15 documented as of this encounter
--- OUTSIDE RECORDS SUMMARY | 2025-02-01 01:41 | XMS_ITS | Encounter Summary ---
Author Organization [facility] Address [address] [place] [address] Care Team Providers Care District Gauger Name Role Phone Mendez Roldan MD Primary Care Provider [phone] Encounter Details Date Type Department Care Team Description 09/01/2015 Business Doc Medical Records [address] [place] [address] Abstract, Provider Social History Tobacco Use Types [...] on filedocumented in this encounter Care Teams District Gauger Relationship Specialty Start Date End Date Mendez Roldan MD [address] [place] [address] PCP - General Internal Medicine 05/08/15 documented as of this encounter
--- OUTSIDE RECORDS SUMMARY | 2025-02-01 01:41 | XMS_ITS | Encounter Summary ---
Author Organization [facility] Address [address] [place] [address] Care Team Providers Care Distribution Estimator Name Role Phone Mendez Roldan MD Primary Care Provider [phone] Reason for Visit * Reason Comments E-prescribe Rx Request Encounter Details Date Type Department Care Team Description 01/02/2022 [facility] General Surgery [facility] [address] [phone] Avani Alas PA-C [address] [phone] E-prescribe Rx Request Social History Tobacco Use [...] on filedocumented in this encounter Care Teams Distribution Estimator Relationship Specialty Start Date End Date Mendez Roldan MD [address] [place], [place] [phone] PCP - General Internal Medicine 05/08/15 documented as of this encounter
--- OUTSIDE RECORDS SUMMARY | 2025-02-01 01:41 | XMS_ITS | Encounter Summary ---
Author Organization [facility] Address [address] [place] [address] Care Team Providers Care Veterinary Virus Serum Inspector Name Role Phone Mendez Roldan MD Primary Care Provider [phone] Encounter Details Date Type Department Care Team Description 04/09/2016 Telephone Adult Medicine [address] [address] Mendez Roldan MD [address] [place] [address] Social History Tobacco Use Types Packs/Day Years [...] encounter Miscellaneous Notes * Telephone Encounter - Craig Oden - 04/09/2016 9:01 AM EST error documented in this encounter Plan of Treatment Not on file documented as of this encounter Visit Diagnoses Not on filedocumented in this encounter Care Teams Veterinary Virus Serum Inspector Relationship Specialty Start Date End Date Mendez Roldan MD [address] [place] [address] PCP - General Internal Medicine 05/08/15 documented as of this encounter
--- OUTSIDE RECORDS SUMMARY | 2025-02-01 01:41 | XMS_ITS | Encounter Summary ---
Author Organization [facility] Address [address] [place] [address] Care Team Providers Care Natural Foods Clerk Name Role Phone Mendez Roldan MD Primary Care Provider [phone] Encounter Details Date Type Department Care Team Description 04/04/2017 Refining Supervisor Report Medical Records [address] [place] [address] Alejandra Simon NP Social History Tobacco Use Types Packs/Day Years [...] on filedocumented in this encounter Care Teams Natural Foods Clerk Relationship Specialty Start Date End Date Mendez Roldan MD [address] [place] [address] PCP - General Internal Medicine 05/08/15 documented as of this encounter
--- OUTSIDE RECORDS SUMMARY | 2025-02-01 01:41 | XMS_ITS | Encounter Summary ---
Author Organization [facility] Address [address] [place] [address] Care Team Providers Care Aba Therapist Name Role Phone Mendez Roldan MD Primary Care Provider [phone] Reason for Visit * Reason Onset Date Comments Faxed Order 06/02/2017 Encounter Details Date Type Department Care Team Description 06/02/2017 Telephone Adult Medicine [address] [address] Mendez Roldan MD [address] [place] [address] Faxed Order Social History Tobacco Use Types Packs/Day Years [...] encounter Miscellaneous Notes * Telephone Encounter - Norah Murphy - 06/02/2017 12:46 PM EST [facility] sent orders for dr Roldan to review, sign and fax back to [phone] Roldan's bin on b-side documented in this encounter Plan of Treatment Not on file documented as of this encounter Visit Diagnoses Not on filedocumented in this encounter Care Teams Aba Therapist Relationship Specialty Start Date End Date Mendez Roldan MD [address] [place] [address] PCP - General Internal Medicine 05/08/15 documented as of this encounter
--- OUTSIDE RECORDS SUMMARY | 2025-02-01 01:41 | XMS_ITS | Encounter Summary ---
Author Organization [facility] Address [address] [place] [address] Care Team Providers Care Surgeon Assistant Name Role Phone Mendez Roldan MD Primary Care Provider [phone] Encounter Details Date Type Department Care Team Description 10/23/2020 [facility] Medical Records [address] [place] [address] Zackery Garza MD Social History Tobacco Use [...] on filedocumented in this encounter Care Teams Surgeon Assistant Relationship Specialty Start Date End Date Mendez Roldan MD [address] [place] [address] PCP - General Internal Medicine 05/08/15 documented as of this encounter
--- OUTSIDE RECORDS SUMMARY | 2025-02-01 01:41 | XMS_ITS | Encounter Summary ---
Author Organization [facility] Address [address] [place] [address] Care Team Providers Care Glassware Verifier Name Role Phone Mendez Roldan MD Primary Care Provider [phone] Encounter Details Date Type Department Care Team Description 10/30/2017 Release of Information Medical Records [address] [place] [address] Abstract, Provider Social History Tobacco Use Types [...] on filedocumented in this encounter Care Teams Glassware Verifier Relationship Specialty Start Date End Date Mendez Roldan MD [address] [place] [address] PCP - General Internal Medicine 05/08/15 documented as of this encounter
--- OUTSIDE RECORDS SUMMARY | 2025-02-01 01:41 | XMS_ITS | Encounter Summary ---
Author Organization [facility] Address [address] [place] [address] Care Team Providers Care Railroad Watchman Name Role Phone Mendez Roldan MD Primary Care Provider [phone] Encounter Details Date Type Department Care Team Description 06/16/2018 Epic Anesthesia Analyst Report Medical Records [address] [place] [address] Araceli Carrillo PA-C Social History Tobacco Use Types Packs/Day [...] on filedocumented in this encounter Care Teams Railroad Watchman Relationship Specialty Start Date End Date Mendez Roldan MD [address] [place] [address] PCP - General Internal Medicine 05/08/15 documented as of this encounter
--- OUTSIDE RECORDS SUMMARY | 2025-02-01 01:41 | XMS_ITS | Encounter Summary ---
Author Organization [facility] Address [address] [place] [address] Care Team Providers Care Pilot Captain Name Role Phone Mendez Roldan MD Primary Care Provider Encounter Details Date Type Department Care Team Description 11/20/2022 Hawk Missile System Crewmember Report Medical Records [address] [place] [address] Rayna Crane MD Social History Tobacco Use Types Packs/Day [...] on filedocumented in this encounter Care Teams Pilot Captain Relationship Specialty Start Date End Date Mendez Roldan MD [address] [place] [address] PCP - General Internal Medicine 05/08/15 documented as of this encounter
--- OUTSIDE RECORDS SUMMARY | 2025-02-01 01:41 | XMS_ITS | Encounter Summary ---
Author Organization [facility] Address [address] [place] [address] Care Team Providers Care Hospital Pharmacist Name Role Phone Mendez Roldan MD Primary Care Provider [phone] Encounter Details Date Type Department Care Team Description 06/25/2016 Substance Abuse Clinician Report Medical Records [address] [place] [address] Yobany Burgess MD Social History Tobacco Use Types Packs/Day [...] on filedocumented in this encounter Care Teams Hospital Pharmacist Relationship Specialty Start Date End Date Mendez Roldan MD [address] [place] [address] PCP - General Internal Medicine 05/08/15 documented as of this encounter
--- OUTSIDE RECORDS SUMMARY | 2025-02-01 01:41 | XMS_ITS | Encounter Summary ---
Author Organization [facility] Address [address] [place] [address] Care Team Providers Care Nuclear Medicine Specialist Name Role Phone Mendez Roldan MD Primary Care Provider [phone] Encounter Details Date Type Department Care Team Description 09/30/2016 Payroll Associate Report Medical Records [address] [place] [address] Elayne Yanez MD Social History Tobacco Use [...] on filedocumented in this encounter Care Teams Nuclear Medicine Specialist Relationship Specialty Start Date End Date Mendez Roldan MD [address] [place] [address] PCP - General Internal Medicine 05/08/15 documented as of this encounter
--- OUTSIDE RECORDS SUMMARY | 2025-02-01 01:41 | XMS_ITS | Encounter Summary ---
Author Organization [facility] Address [address] [place] [address] Care Team Providers Care Cloth Worker Name Role Phone Mendez Roldan MD Primary Care Provider [phone] Encounter Details Date Type Department Care Team Description 04/10/2016 Fuel Dock Attendant Report Medical Records [address] [place] [address] Ramona Bonds Social History Tobacco Use Types Packs/Day Years [...] on filedocumented in this encounter Care Teams Cloth Worker Relationship Specialty Start Date End Date Mendez Roldan MD [address] [place] [address] PCP - General Internal Medicine 05/08/15 documented as of this encounter
--- OUTSIDE RECORDS SUMMARY | 2025-02-01 01:41 | XMS_ITS | Encounter Summary ---
Author Organization [facility] Address [address] [place] [address] Care Team Providers Care Sole Trimmer Name Role Phone Mendez Roldan MD Primary Care Provider Encounter Details Date Type Department Care Team Description 07/03/2023 Manager Talent Management Report Medical Records [address] [place] [address] Sandeep Beatty PA-C Social History Tobacco Use Types Packs/Day [...] on filedocumented in this encounter Care Teams Sole Trimmer Relationship Specialty Start Date End Date Mendez Roldan MD [address] [place] [address] PCP - General Internal Medicine 05/08/15 documented as of this encounter
--- OUTSIDE RECORDS SUMMARY | 2025-02-01 01:41 | XMS_ITS | Encounter Summary ---
Author Organization [facility] Address [address] [place] [address] Care Team Providers Care Marine Diesel Technician Name Role Phone Mendez Roldan MD Primary Care Provider [phone] Encounter Details Date Type Department Care Team Description 06/05/2018 Registered Midwife Report Medical Records [address] [place] [address] Zackery Garza MD Social History Tobacco Use [...] on filedocumented in this encounter Care Teams Marine Diesel Technician Relationship Specialty Start Date End Date Mendez Roldan MD [address] [place], [place] [phone] PCP - General Internal Medicine 05/08/15 documented as of this encounter
--- OUTSIDE RECORDS SUMMARY | 2025-02-01 01:41 | XMS_ITS | Encounter Summary ---
Author Organization [facility] Address [address] [place] [address] Care Team Providers Care Multigrapher Name Role Phone Community, Pcp Primary Care Provider Mendez Delgado MD Primary Care Provider [phone] [facility], Pcp Primary Care Provider Mendez Delgado MD Primary Care Provider [phone] Encounter Details Date Type Department Care Team Description 06/15/2014 Release of Information Medical Records [address] [place] [address] Abstract, Provider Social History Tobacco Use Types [...] on filedocumented in this encounter Care Teams Multigrapher Relationship Specialty Start Date End Date Community, Pcp PCP - General Internal Medicine 06/10/14 04/05/15 Mendez Roldna MD [address] [place] [address] [phone] PCP - General Internal Medicine 04/06/15 04/30/15 Community, Pcp PCP - General Internal Medicine 05/01/15 05/07/15 Mendez Roldan MD [address] [place] [address] PCP - General Internal Medicine 05/08/15 documented as of this encounter
--- OUTSIDE RECORDS SUMMARY | 2025-02-01 01:41 | XMS_ITS | Encounter Summary ---
Author Organization [facility] Address [address] [place] [address] Care Team Providers Care Safety Spec Name Role Phone Mendez Roldan MD Primary Care Provider [phone] Encounter Details Date Type Department Care Team Description 03/27/2018 Transfer Records Medical Records [address] [place], [place] [address] [place] [address] Social History Tobacco Use Types Packs/Day Years [...] on filedocumented in this encounter Care Teams Safety Spec Relationship Specialty Start Date End Date Mendez Roldan MD [address] [place] [address] PCP - General Internal Medicine 05/08/15 documented as of this encounter
--- OUTSIDE RECORDS SUMMARY | 2025-02-01 01:41 | XMS_ITS | Encounter Summary ---
Author Organization [facility] Address [address] [place] [address] Care Team Providers Care Gear Milling Machine Set Up Operator Name Role Phone Mendez Roldan MD Primary Care Provider [phone] Encounter Details Date Type Department Care Team Description 09/10/2021 Telephone Adult Medicine - [address] [address] Zackary Aldana, ZACHARY [address] [place] [address] Social History Tobacco Use Types Packs/Day Years [...] suspected to have Coronavirus/COVID-19? No / Unsure 08/27/2021 10:10 AM EDT documented as of this encounter Miscellaneous Notes * Telephone Encounter - Jennifer Gordon M.A. - 09/11/2021 1:42 PM EDT 2nd attempt Lmom for pt to cb and book in office appointment per pts request. * Telephone Encounter - Edel Ceron M.A. - 09/10/2021 10:40 AM EDT Left message to return call, please put call through to [phone] or re message to [facility] Testing pool * Telephone Encounter - Zackary Aldana NP - 09/10/2021 10:16 AM EDT Please re-schedule in office per pt request. documented in this encounter Plan of Treatment Not on file documented as of this encounter Visit Diagnoses Not on filedocumented in this encounter Care Teams Gear Milling Machine Set Up Operator Relationship Specialty Start Date End Date Mendez Roldan MD [address] [place] [address] PCP - General Internal Medicine 05/08/15 documented as of this encounter
--- OUTSIDE RECORDS SUMMARY | 2025-02-01 01:41 | XMS_ITS | Clinical Summary ---
Author Organization [facility] Address [address] [place] [address] Care Team Providers Care Finishing Range Operator Name Role Phone Mendez Roldan MD Primary Care Provider [phone] Allergies Active Allergy Reactions Severity Noted Date Comments Levofloxacin Rash/Dermatitis 06/03/2017 Penicillins Rash/Dermatitis,Swelling/Edema High 01/27 Tape Rash/Dermatitis Medium 03/16/2018 Medications Medication Sig Dispensed Refills Start Date End Date Status clonidine (CATAPRES) 0.1 MG tablet 0 02/16/2015 Active cyanocobalamin 1000 MCG/ML injectionIndications :Hypotension due to hypovolemia,Vitamin B12 deficiency Inject 1 mL into the muscle every 30 days. 1 mL 5 09/28/2018 Active topiramate (TOPAMAX) 50 MG tablet TAKE 1 TABLET BY MOUTH TWICE DAILY 180 Tab 1 01/07/2019 Active clotrimazole-betamet hasone (LOTRISONE) creamIndications:Vit saleem B12 deficiency Apply to affected area twice a day 90 g 0 08/27/2021 Active gabapentin (NEURONTIN) 300 MG capsule Take 300 mg by mouth at bedtime. 0 10/17/2021 Active hydrOXYzine (VISTARIL) 25 MG capsule TAKE 1 CAPSULE BY MOUTH THREE TIMES DAILY NEEDED 0 10/17/2021 Active Zolpidem Tartrate 10 MG Tab TAKE 1 TABLET BY MOUTH AT BEDTIME NEEDED 0 07/31/2021 Active alclomethasone (Aclovate) 0.05 % cream Mix with clotrimazole cream and apply small amount to affceted areas on face bid for 1-2 weeks then stop. Apply alone to affected area on neck bid for 2 weeks then stop 30 g 0 04/11/2022 Active pantoprazole (Protonix) 40 MG tablet Take 1 Tablet by mouth daily. Take in am on empty stomach, wait 30 mins and then eat to activate the medication 30 Tablet 11 07/31/2023 Active famotidine (PEPCID) 20 MG tablet Take 1 Tablet by mouth 2 times daily as needed for Heartburn. 60 Tablet 11 07/31/2023 Active lubiprostone (AMITIZA) 24 MCG capsule Take 1 Capsule by mouth 2 times daily (with meals). 60 Capsule 11 07/31/2023 Active fluticasone (Flovent HFA) 110 MCG/ACT inhalerIndications:M ild persistent asthma without complication INHALE 1 PUFF INTO THE LUNGS TWICE DAILY 12 g 2 09/25/2023 Active ALBUTEROL SULFATE 108 (90 Base) MCG/ACT Aero Soln Inhale 2 Puffs into the lungs every 6 hours as needed for Cough or Wheezing. 8.5 g 0 01/13/2024 Active GaviLyte-G 236 g suspension STARTING AT 6PM THE NIGHT BEFORE YOUR PROCEDURE, DRINK 8OZ GLASSES AT YOUR OWN PACE UNTIL RECTALS RUN CLEAR 4000 mL 0 01/15/2024 Active ondansetron (ZOFRAN-ODT) 4 MG disintegrating tablet DISSOLVE 2 TABLETS ON THE TONGUE EVERY 8 HOURS NEEDED FOR NAUSEA 90 Tablet 2 01/15/2024 Active Ipratropium-Albutero l 0.5-2.5 (3) MG/3ML Solution Take 3 mL by nebulization daily as needed for Other (sob,cough, wheezing). 810 mL 1 01/15/2024 Active clotrimazole (LOTRIMIN) 1 % cream MIX WITH ACLOVATE AND APPLY TO THE AFFECTED AREA ON FACE TWICE DAILY FOR 1 TO 2 WEEKS THEN STOP 30 g 0 01/16/2024 Active Diclofenac Sodium 1 % Gel PLACE 1 GRAM ONTO HEEL ONE TO TWO TIMES A DAY NEEDED 100 g 0 01/19/2024 Active Cholecalciferol (Vitamin D3) 50 MCG (2000 UT) Cap TAKE 1 CAPSULE BY MOUTH DAILY 30 Capsule 0 02/27/2024 Active Active Problems Problem Noted Date Bariatric surgery status 05/22/2021 Urinary retention 06/22/2019 LUQ pain 04/08/2019 Interstitial cystitis (chronic) with hem aturia 06/25/2018 Vit B12 defic anemia d/t slctv vit B12 m alabsorp w protein 06/25/2018 ALEXUS (obstructive sleep apnea) 05/01/2018 Vitamin B12 deficiency 01/01/2018 Mild chronic gastritis 11/06/2017 NAFLD (nonalcoholic fatty liver disease) 01/01/2017 Vitamin D deficiency 11/08/2016 Gastroparesis 01/17/2016 Chronic constipation 01/17/2016 Fibromyalgia 11/07/2015 Osteoarthritis of both knees 07/14/2015 Gastroesophageal reflux disease without esophagitis 07/14/2015 Chronic interstitial cystitis 05/01/2015 Overview: Since a child. She has Urologist [address]. HTN (hypertension) 05/01/2015 Depression 05/01/2015 Asthma 05/01/2015 Migraines Resolved Problems Problem Noted Date Resolved Date Class 1 obesity due to exces s calories without serious comorbidity with body mass index (BMI) of 32.0 to 32.9 in adult 11/03/2018 05/22/2021 Morbid obesity with BMI of 40.0-44.9, adult 09/201711/03/2018 Overview: Bariatric Surgery Program Surgeon: Initial visit date 02/24/17 [facility] Psychiatry clearance: 05/09/17 Jerzy PCP clearance: Physical: Done. Support groups: Done. Labs: Done. Most recent 09/26/17. Dietitian-Dietary Clearance: Requested weight loss: Last Surgery appt prior to Surgery: Prior Authorization Number: Surgery date goal: Ovarian cyst 09/12/2014 12/15/2017 Overview: Overview: S/P left sided salpingo oophorectomy for cyst. July 19. Immunizations Name Administration Dates Next Due Influenza (> 6 Months) 01/11/2016 Influenza Vaccine-preservati ve Free-quadrivalent 4 Years 01/08/2019 Influenza Vaccine-quadrivalent 4 Years Plus 09/2017,01/16/2017 PPD-RBMG 10/22/2016 Pneumoccoccal(Adult) Polysaccharide PPSV23 04/02 Tdap 09/01/2015 Family History Medical History Relation Name Comments Diabetes Brother 1 Arthritis Father Kidney Stones Maternal Grandfather CA Ovarian Maternal Grandmother Cancer of the Breast Maternal Grandmother [place] Maternal Grandmother Arthritis Mother Diabetes Mother Relation Name Status Comments Brother 1 Alive Brother 2 Brother 3 Daughter 1 Alive Daughter 2 Alive Daughter 3 Alive Father Alive Maternal Grandfather Maternal Grandmother Mother Alive Sister 1 Alive Sister 2 Alive Social [...] file Not on file Not on file Last Filed Vital Signs Vital Sign Reading Time Taken Comments Blood Pressure 134/82 02/09/2024 2:34 PM EDT Pulse 62 02/09/2024 2:34 PM EDT Temperature 36.5 C (97.7 F) 05/22/2021 9:47 AM EST Respiratory Rate 16 10/18/2022 12:3 8 PM EDT Oxygen Saturation 96% 10/03/2021 10: 23 AM EDT Inhaled Oxygen Concentration - - Weight 56.6 kg (124 lb 12.8 oz) 02/09/2024 2:34 PM EDT Height 157.5 cm (5' 2 ) 02/09/2024 2:34 PM EDT Body Mass Index 22.83 02/09/2024 2:34 PM EDT Plan of Treatment Health Maintenance Due Date Last Done Comments Covid-19 Vaccine (#1) 05/17/1979 DEPRESSION SCREEN 10/24/2017 10/24/2016, 09/15/2015 CERVICAL CANCER SCREENING 06/14/2019 06/14/2016, MAMMOGRAM 09/29/2019 09/28/2018 (Exte rnal Completion), 05/09/2014 INFLUENZA (#1) 2024 01/08/2019 (Comp leted), 01/08/2019, 01/01/2018, Additional history exists BASELINE HEALTH EXAM 40-64 02/08/202602/08, 10/18/2022, 08/27/2021, Additional history exists DTAP/TDAP/TD (4 - Td or Tdap) 04/12/2026, 09/01/2015, 02/15/2015 COLON CANCER SCREENING 10/14/2028 4, 02/13/2017 (External Completion), 02/13/2017, Additional history exists CHOLESTEROL SCREENING 02/08/2029 02/09/2024 , 08/27/2021, 03/16/2019, Additional history exists PNEUMOCOCCAL VACCINE FOR HIG H RISK PATIENTS (#2) 11/15/2043 04/02/2016 Care Teams Finishing Range Operator Relationship Specialty Start Date End Date Mendez Roldan MD [address] [place] [address] PCP - General Internal Medicine 05/08/15
--- OUTSIDE RECORDS SUMMARY | 2025-02-01 01:41 | XMS_ITS | Encounter Summary ---
Author Organization [facility] Address [address] [place] [address] Care Team Providers Care Luggage Repairer Name Role Phone Mendez Roldan MD Primary Care Provider [phone] Encounter Details Date Type Department Care Team Description 07/06/2018 Beef Tagger Report Medical Records [address] [place] [address] Fidencio Grijalva MD Social History Tobacco Use Types Packs/Day [...] on filedocumented in this encounter Care Teams Luggage Repairer Relationship Specialty Start Date End Date Mendez Roldan MD [address] [place] [address] PCP - General Internal Medicine 05/08/15 documented as of this encounter
--- OUTSIDE RECORDS SUMMARY | 2025-02-01 01:41 | XMS_ITS | Encounter Summary ---
Author Organization [facility] Address [address] [place] [address] Care Team Providers Care Open Pit Quarry Supervisor Name Role Phone Mendez Roldan MD Primary Care Provider [phone] Encounter Details Date Type Department Care Team Description 05/11/2018 Eyeglass Frame Truer Report Medical Records [address] [place] [address] Zackery Garza MD Social History Tobacco Use [...] on filedocumented in this encounter Care Teams Open Pit Quarry Supervisor Relationship Specialty Start Date End Date Mendez Roldan MD [address] [place], [place] [phone] PCP - General Internal Medicine 05/08/15 documented as of this encounter
--- OUTSIDE RECORDS SUMMARY | 2025-02-01 01:41 | XMS_ITS | Encounter Summary ---
Author Organization [facility] Address [address] [place] [address] Care Team Providers Care Nurse Practitioner Hospitalist Name Role Phone Mendez Roldan MD Primary Care Provider [phone] Reason for Visit * Reason Comments E-prescribe Rx Request Encounter Details Date Type Department Care Team Description 01/23/2022 [facility] General Surgery [facility] [address] [id number] Avnai Alas PA-C [address] [phone] E-prescribe Rx Request Social History [...] on filedocumented in this encounter Care Teams Nurse Practitioner Hospitalist Relationship Specialty Start Date End Date Mendez Roldan MD [address] [place], [place] [id number] PCP - General Internal Medicine 05/08/15 documented as of this encounter
--- OUTSIDE RECORDS SUMMARY | 2025-02-01 01:41 | XMS_ITS | Encounter Summary ---
Author Organization [facility] Address [address] [place] [address] Care Team Providers Care Attache Name Role Phone Mendez Roldan MD Primary Care Provider [phone] Encounter Details Date Type Department Care Team Description 09/28/2021 Refill Adult Medicine [address] [address] Mendez Roldan MD [address] [place] [phone] Social History Tobacco Use Types Packs/Day Years [...] Telephone Encounter - Jennifer Gordon M.A. - 10/01/2021 4:23 PM EDT Lmom for pt to cb and discuss med request pls fwd to B-side. * Telephone Encounter - Chiquis Igelsias M.A. - 10/01/2021 11:04 AM EDT Last office visit 08/27/21 pending appt 10/03/21 Lab Results Component Value Date NA 139 08/27/2021 K 3.7 08/27/2021 CO2 31 08/27/2021 CL 103 08/27/2021 BUN 8 08/27/2021 CREAT 0.69 08/27/2021 GLU 74 08/27/2021 CA 9.4 08/27/2021 GFR > 60 08/27/2021 documented in this encounter Plan of Treatment Not on file documented as of this encounter Visit Diagnoses Not on filedocumented in this encounter Care Teams Attache Relationship Specialty Start Date End Date Mendez Roldan MD [address] [place] [id number] PCP - General Internal Medicine 05/08/15 documented as of this encounter
--- OUTSIDE RECORDS SUMMARY | 2025-02-01 01:41 | XMS_ITS | Encounter Summary ---
Author Organization [facility] Address [address] [place] [address] Care Team Providers Care Service Technician Name Role Phone Mendez Roldan MD Primary Care Provider Encounter Details Date Type Department Care Team Description 01/14/2019 Orders Only Medical Records [address] [place] [address] Abstract, Provider Nausea and vomiting, intractability of vomiting not specified, unspecified vomiting type Social History Tobacco Use Types Packs/Day Years [...] Procedure Name Priority Date/Time Associated Diagnosis Comments CHG RADIOLOGIC EXAM UPR GI TRC DOUBLE CONTRAST STUDY Routine 01/14/2019 Nausea and vomiting, intractability of vomiting not specified, unspecified vomiting type documented in this encounter Results * (UGI) CONTRAST X-RAY OF UPPER GI TRACT (01/14/2019) Sho Barrow MD OUTSIDE RADIOLOGY documented in this encounter Visit Diagnoses Diagnosis Nausea and vomiting, intractability of vomiting not specified, unspecified vomiting type documented in this encounter Care Teams Service Technician Relationship Specialty Start Date End Date Mendez Roldan MD [address] [place] [id number] PCP - General Internal Medicine 05/08/15 documented as of this encounter
--- OUTSIDE RECORDS SUMMARY | 2025-02-01 01:41 | XMS_ITS | Encounter Summary ---
Author Organization [facility] Address [address] [place] [address] Care Team Providers Care Emergency Communications Operator Name Role Phone Mendez Roldan MD Primary Care Provider [phone] Encounter Details Date Type Department Care Team Description 05/23/2021 Telephone General Surgery - [place] [address] [phone] Avani Alas PA-C [address] [phone] Social History Tobacco Use Types Packs/Day Years [...] have Coronavirus / COVID-19? No / Unsure 05/22/2021 9:36 AM EST documented as of this encounter Miscellaneous Notes * Telephone Encounter - Paola Vincent M.A. - 05/23/2021 10:11 AM EST Called and spoke to daughter on the endoscopy, the mother has appt scheduled here at [facility] 2/10 @ 8:30a NPO after midnight and will be mailed directions documented in this encounter Plan of Treatment Not on file documented as of this encounter Visit Diagnoses Not on filedocumented in this encounter Care Teams Emergency Communications Operator Relationship Specialty Start Date End Date Mendez Roldan MD [address] [place] [address] PCP - General Internal Medicine 05/08/15 documented as of this encounter
--- OUTSIDE RECORDS SUMMARY | 2025-02-01 01:41 | XMS_ITS | Encounter Summary ---
Author Organization [facility] Address [address] [place] [address] Care Team Providers Care Cement Breaker Name Role Phone Mendez Roldan MD Primary Care Provider [phone] Reason for Visit * Reason Onset Date Comments APPOINTMENT 04/15/2016 Encounter Details Date Type Department Care Team Description 04/15/2016 Telephone Adult Medicine B - [address] [address] Mendez Roldan MD [address] [place] [address] APPOINTMENT Social History Tobacco Use Types Packs/Day Years [...] Telephone Encounter - Claudine Motta M.A. - 04/15/2016 11:02 AM EST There are available appt's that are public for 04/24/16. Please schedule with Katerina or another AP on B side. Thank you * Telephone Encounter - Norah Murphy - 04/15/2016 10:35 AM EST Follow up appointment not available. Please call patient to book-no open NON PUBLIC SLOTS. Appointment needed 10 days for removal of stitches with Dr. Roldan documented in this encounter Plan of Treatment Not on file documented as of this encounter Visit Diagnoses Not on filedocumented in this encounter Care Teams Cement Breaker Relationship Specialty Start Date End Date Mendez Roldan MD [address] [place] [id number] PCP - General Internal Medicine 05/08/15 documented as of this encounter
--- OUTSIDE RECORDS SUMMARY | 2025-02-01 01:41 | XMS_ITS | Encounter Summary ---
Author Organization [facility] Address [address] [place] [address] Care Team Providers Care Outdoor Pursuits Instructor Name Role Phone Mendez Roldan MD Primary Care Provider [phone] Reason for Visit * Reason Comments E-prescribe Rx Request Encounter Details Date Type Department Care Team Description 05/30/2016 Refill Gastroenterology - [address] [address] Juanito Hdz MD E-prescribe Rx Request Social History Tobacco [...] encounter Miscellaneous Notes * Telephone Encounter - Juanito Hdz MD - 05/30/2016 5:03 PM EST Prescribed 90 day supply. * Telephone Encounter - Juanito Hdz MD - 05/30/2016 4:46 PM EST Please inform patient that she should ask her pharmacist for a 90 day supply. documented in this encounter Plan of Treatment Not on file documented as of this encounter Visit Diagnoses Not on filedocumented in this encounter Care Teams Outdoor Pursuits Instructor Relationship Specialty Start Date End Date Mendez Roldan MD [address] [place] [address] PCP - General Internal Medicine 05/08/15 documented as of this encounter
[2025-02-01 02:44] LABS: Appearance Urine Clear; Glucose Urine UA Negative (Negative); PH 7.0 (5.0-9.0); Specific Gravity - Urine 1.010 (1.005-1.025); UMIC TRIGGER UACC YES
[2025-02-01 02:47] LABS: UACC Culture Trigger YES
[2025-02-01 02:55] LABS: Cannabinoid Screen Urine POSITIVE (Not Detect)
--- NOTE | 2025-02-01 03:02 | PC.NURSE ---
provider into remove IV, positive drug screen, will medicated per mar.
--- NOTE | 2025-02-01 03:03 | ED.GENADULT ---
HPI - General Adult General Chief complaint: General Medical Stated complaint: General Medical Time Seen by Provider: 02/01/25 01:56 Source: patient Limitations: no limitations History of Present Illness ED Provider: Rayna Brizuela PA-C HPI narrative: 44-year-old female with a history of cystitis, fibromyalgia, arthritis, asthma, sleep apnea who presents with dysuria times 2-3 days. Patient states he was seen in the emergency room 2 days ago, she was prescribed Macrobid, her symptoms have persisted. Denies back pain abdominal pain, nausea vomiting or fever. Related Data Previous Rx's ?Medication ?Instructions ?Recorded sulfamethoxazole 800 1 tab PO Q12H 5 days #10 tabs 08/05/20 mg-trimethoprim 160 mg tablet (Bactrim DS) doxycycline hyclate 100 mg capsule 100 mg PO BID #14 caps 08/14/20 hydrocodone 5 mg-acetaminophen 325 1 tab PO BID PRN pain #5 tabs 04/27/23 mg tablet ondansetron 4 mg disintegrating 4 mg PO Q8H 3 days #9 tabs 04/27/23 tablet phenazopyridine 200 mg tablet 200 mg PO TID 6 doses #6 tabs 01/30/25 (Pyridium) cephalexin 500 mg capsule 500 mg PO Q12H #13 caps 02/01/25 phenazopyridine 200 mg tablet 200 mg PO TID PRN pain #10 tabs 02/01/25 (Pyridium) Allergies Allergy/AdvReac Type Severity Reaction Status Date / Time levofloxacin (From Levaquin) Allergy Rash Verified 01/31/25 23:39 Penicillins Allergy Rash Verified 01/31/25 23:39 adhesive tape AdvReac Rash Verified 01/31/25 23:39 Review of Systems Review of Systems: Yes all other systems are reviewed and are negative Constitutional: Constitutional: Denies fatigue and Denies fever(s) Gastrointestinal: Gastrointestinal: Denies abdominal pain, Denies nausea and Denies vomiting Genitourinary: Genitourinary: Reports dysuria and Denies flank pain Endocrine: Endocrine: Denies fatigue PMFSH Past Medical History Attestation statement: The following information was validated with the patient. Medical History Infected cyst of skin Arthritis Asthma Sleep apnea Interstitial cystitis Hypotension Fibromyalgia Social History Social History Alcohol intake: current Alcohol intake frequency: does not drink Smoked in Last 30 Days: Yes Use of substances other than those prescribed or required for medical reasons: No Advance Directives: No Advance Directives Information Provided: Yes Physical Exam ED Vital Signs: Vital Signs - 24 hr 01/31/25 23:35 Temperature 97.3 F Pulse Rate 84 Respiratory Rate 18 Blood Pressure 107/58 L Pulse Oximetry 99 Oxygen Delivery Method Room Air BMI result Body Mass Index 20.3 Const Other: Alert well-appearing, appears that she may be intoxicated with an illicit substance Orientation/consciousness: patient oriented x3 Resp Effort & Inspection: normal respiratory effort Cardio Other: Normal peripheral perfusion General: Yes no CVA tenderness Back/Spine/Pelvis Back: no CVA tenderness Skin Other: Warm dry no rash Neuro General: patient oriented x3, gait normal, no focal motor deficits and CN's II-XI intact bilaterally Psych Other: Cooperative Medications Administered Discontinued Medications Generic Name Dose Route Start Last Admin Trade Name Richard PRN Reason Stop Dose Admin Sodium Chloride 1,000 mls @ 999 mls/hr 02/01/25 02:00 02/01/25 02:35 Ns IV 02/01/25 03:00 999 mls/hr .Q1H1M CRIS Administration Ketorolac Tromethamine 15 mg 02/01/25 01:57 02/01/25 02:36 Ketorolac Tromethamine 15 Mg/Ml Vial IVPUSH 02/01/25 01:58 15 mg ONCE ONE Administration Phenazopyridine HCl 200 mg 02/01/25 01:57 02/01/25 02:36 Phenazopyridine Hcl 200 Mg Tablet PO 02/01/25 01:58 200 mg ONCE ONE Administration Medical Decision Making Medical Decision Making MDM Narrative: 44-year-old female with a history of cystitis, fibromyalgia, arthritis, asthma, sleep apnea who presents with dysuria times 2-3 days. Patient states he was seen in the emergency room 2 days ago, she was prescribed Macrobid, her symptoms have persisted. Denies back pain abdominal pain, nausea vomiting or fever. Problem: Cystitis History: Per patient I have considered the following differential diagnoses: Interstitial cystitis, UTI, pyelonephritis, renal colic Plan: Patient is here due to refractory symptoms. She has no back pain, abdominal pain, active GI symptoms or fever to suggest pyelonephritis versus renal colic. No indication for imaging. We will repeat the urinalysis, giving Pyridium Toradol and fluid. To note, the patient and her partner who is here with her at bedside, both appear as if they are likely actively using illicit substances. Adding on a drug screen I have independently reviewed the following tests: Labs: Urine infected, drug screen positive for opiates, fentanyl, cocaine and marijuana Differential Diagnosis Differential Diagnoses: The differential diagnosis associated with the presentation includes See medical decision-making Admission/Observation Consideration of admission/observation: Escalation of care including admission/observation considered Not applicable Lab Data MDM Lab Attestation statement: I reviewed the patient's lab results. Labs: Lab Results 02/01/25 02/01/25 Range/Units 02:34 02:37 Urine Color Dark Yellow Urine Appearance Clear Urine pH 7.0 (5.0-9.0) Ur Specific [place] 1.010 (1.005-1.025) Urine Protein Negative (Neg-Trace) mg/dL Urine Glucose (UA) Negative (Negative) mg/dL Urine Ketones Negative (Negative) mg/dL Urine Blood Negative (Negative) Urine Nitrite Positive H (Negative) Ur Leukocyte Esterase Moderate (2+) H (Negative) Urine RBC 0-2 (0-2) /HPF Urine WBC 11-20 H (0-5) /HPF Ur Squamous Epith Cells 6-10 (0-2) /HPF Urine Bacteria 1+ (None Seen) Hyaline Casts 0-2 (0-2) /LPF Urine Opiates Screen POSITIVE H (Not Detect) Ur Buprenorphine Scrn Not Detected (Not Detect) ng/mL Ur Oxycodone Screen Not Detected (Not Detect) ng/mL Urine Methadone Screen Not Detected (Not Detect) ng/mL Urine Fentanyl Screen POSITIVE H (Not Detect) Ur Barbiturates Screen Not Detected (Not Detect) Ur Phencyclidine Scrn Not Detected (Not Detect) Ur Amphetamines Screen Not Detected (Not Detect) U Benzodiazepines Scrn Not Detected (Not Detect) Urine Cocaine Screen POSITIVE H (Not Detect) U Marijuana (THC) Screen POSITIVE H (Not Detect) Discharge Plan Discharge Clinical Impression: Urinary tract infection Patient Disposition: Home, Self-Care Instructions: Urinary Tract Infection in Women (ED) Additional Instructions: You were found to have a urinary tract infection. Take the cephalexin as directed this is an antibiotic. Use the Pyridium as needed for urinary pain. This medication will cause your urine to become fluorescent orange, it will resolve, increase your fluid intake. Follow up with your primary care provider as needed. Prescriptions: New cephalexin 500 mg capsule 500 mg PO Q12H Qty: 13 0RF phenazopyridine [Pyridium] 200 mg tablet 200 mg PO TID PRN (Reason: pain) Qty: 10 0RF No Action sulfamethoxazole-trimethoprim [Bactrim DS] 800-160 mg tablet 1 tab PO Q12H 5 Days Qty: 10 0RF doxycycline hyclate 100 mg capsule 100 mg PO BID Qty: 14 0RF phenazopyridine [Pyridium] 200 mg tablet 200 mg PO TID Qty: 6 0RF ondansetron 4 mg tablet,disintegrating 4 mg PO Q8H 3 Days Qty: 9 0RF hydrocodone-acetaminophen 5-325 mg tablet 1 tab PO BID PRN (Reason: pain) Qty: 5 0RF Rx Instructions: Partial Fill upon patient request. Print Language: [place]
[2025-02-01 03:13] VITALS: BP 103/60; PULSE 66; RESP 18; TEMP 37; O2SAT 98
--- NOTE | 2025-02-01 03:21 | PC.NURSE ---
reviewed discharge instructions with pt. pt verbalized understanding, no sign of distress upon discharge.
[2025-02-01 03:22] VITALS: BP 103/60; PULSE 66; RESP 18; TEMP 37; O2SAT 98
== END 2025-02-01 03:22 | disposition home or self-care (01) ==
PROVIDERS: Physician Assistant Medical; Emergency Provider Emergency Medicine; PCP Internal Medicine
DX: N39.0 Urinary tract infection, site not specified (principal); Z88.0 Allergy status to penicillin; Z88.1 Allergy status to other antibiotic agents
CPT/HCPCS: 80307; 81001; 87086; 96361; 96374; 99284; J1885